=== PATIENT | female | born 1955 | race Caucasian/White ===

== ENCOUNTER 2017-02-10 14:56 | Emergency (ER) | payer OTHER ==
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
[2017-02-10 15:10] VITALS: BP 152/79; PULSE 55; TEMP 97.4; BMI 27.1
[2017-02-10] MEDS ORDERED: ACETAMINOPHEN 500 MG TABLET (FP) PO ONE (16:23)
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
[2017-02-10] MEDS ORDERED: ACETAMINOPHEN 500 MG TABLET (FP) ONE (16:42)
== END 2017-02-10 16:47 | disposition home or self-care (01) ==
LOC: JERFT 14:56
DX: S16.1XXA Strain of muscle, fascia and tendon at neck level, initial encounter (principal); V43.52XA Car driver injured in collision with other type car in traffic accident, initial encounter; Y92.412 Parkway as the place of occurrence of the external cause; Y93.89 Activity, other specified; Y99.0 Civilian activity done for income or pay; I10 Essential (primary) hypertension; F41.9 Anxiety disorder, unspecified
CPT/HCPCS: 99281-25

== ENCOUNTER → 2018-01-06 | Day surgery (SDC) | payer OTHER ==
--- NOTE | 2018-01-11 11:28 | PATH ---
Surgical Pathology Report Patient Name: SHIVAM JOHNSTON [facility]. Rec. #: [id number] /Age/Gender: 1955 (Age: 62) / F Account: [id number] Location: [facility] Taken: 01/06/2018 Received: 01/06/2018 Reported: 01/11/2018 Physicians: Lalita Noriega M.D. Specimen(s) Received A: LEFT BREAST SPECIMEN WITH CALCIFICATIONS B: LEFT BREAST SPECIMEN WITHOUT CALCIFICATIONS Clinical History Nonpalpable lesion Mammographic findings: Microcalcification, suspicious Final Diagnosis A. 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 B. BREAST, LEFT, WITHOUT CALCIFICATIONS, STEREOTACTIC BIOPSY: BENIGN BREAST TISSUE SHOWING STROMAL FIBROSIS AND FIBROADENOMATOID CHANGE. Electronically Signed Jahaira Lazaro M.D. Gross Description A. Received in formalin labeled "left breast with calcifications," 3.5 x 2.5 x 0.3 cm aggregate of multiple peña-yellow, irregular to cylindrical portions of fibroadipose tissue. The formalin is filtered and the specimen is entirely submitted in 2 cassettes. B. Received in formalin labeled "left breast without calcifications," is a 1.7 x 1.5 x 0.3 cm aggregate of multiple peña-yellow, irregular to cylindrical portions of fibroadipose tissue. The formalin is filtered and the specimen is entirely submitted in one cassette. Time to formalin fixation: 5 minutes Total formalin fixation time: Approximately 6 hours. /01/07/2018 [facility]01/07/2018
== END | disposition home or self-care (01) ==
LOC: FMAMMOTONE 09:46
PROVIDERS: ATTEND Internal Medicine
PROC: 0HBU3ZX Excision of Left Breast, Percutaneous Approach, Diagnostic (ICD-10-PCS; principal; 2018-01-06)
DX: D24.2 Benign neoplasm of left breast (principal); N60.32 Fibrosclerosis of left breast; N64.89 Other specified disorders of breast; R92.1 Mammographic calcification found on diagnostic imaging of breast
CPT/HCPCS: 19081; 87899; 88305-TC; A4648

== ENCOUNTER 2018-11-15 07:47 | Inpatient (IN) | payer OTHER ==
[2018-11-15 07:57] VITALS: BMI 31.5
[2018-11-15] MEDS ORDERED: SODIUM CHLORIDE 1,000 ML IV STA (08:36)
--- NOTE | 2018-11-15 09:06 | PDOC ---
History of Present Illness - General Chief Complaint: Syncope/Near Syncope Stated Complaint: SYNCOPE Time Seen by Provider: 11/15/18 08:07 - History of Present Illness Initial Comments: 11/15/18 09:02 63y/o F hx of HTN, HLD and Anxiety presents to the ED with lightheadedness. 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 She was brought to the ED a few minutes later. Lighheaded sensation was relieved once she was able to lie down in the stretcher. Per pt, this is her 3rd episode of lightheadedness in the last 3 months. Her last episode 2 wks ago prompted a visit to the ED where she had a CT done with no findings. She denies any headache,paresthesisas, blurry vision, weakness, fevers, chills, sick contacts, previous hx of stroke. Past History - Past Medical History Allergies/Adverse Reactions: Allergies Allergy/AdvReac Type Severity Reaction Status Date / Time No Known Allergies Allergy Verified 11/15/18 08:52 Home Medications: Ambulatory Orders Metoprolol Succinate [Toprol XL -] 100 mg PO DAILY 07/17/11 Losartan Potassium [Cozaar -] 25 mg PO DAILY 09/02/14 Escitalopram Oxalate [Lexapro -] 5 mg PO DAILY 09/23/15 Atorvastatin Calcium [Lipitor] 40 mg PO HS 11/15/18 Cholecalciferol (Vitamin D3) [Vitamin D3] 2,000 unit PO DAILY 11/15/18 Gabapentin 300 mg PO TID 11/15/18 traZODone HCL [Trazodone HCl] 100 mg PO HS 11/15/18 Aspirin Coated [Ecotrin -] 81 mg PO DAILY #30 tablet.ec 11/16/18 Anemia: No Asthma: No Cancer: No Cardiac Disorders: No CVA: No (tia 10/2018) COPD: No CHF: No Dementia: No Diabetes: No GI Disorders: No Disorders: No HTN: Yes Hypercholesterolemia: Yes Liver Disease: No Psychiatric Problems: Yes (ANXIETY.) Seizures: No Thyroid Disease: No - Surgical History Abdominal Surgery: Yes Appendectomy: No Cardiac Surgery: No Cholecystectomy: No Lung Surgery: No Neurologic Surgery: No Orthopedic Surgery: No - Suicide/Smoking/Psychosocial Hx Smoking History: Former smoker Have you smoked in the past 12 months: No Number of Cigarettes Smoked Daily: 2 Information on smoking cessation initiated: No 'Breaking Loose' booklet given: 07/17/11 Hx Alcohol Use: No Drug/Substance Use Hx: No Substance Use Type: None Hx Substance Use Treatment: No Review of Systems - Review of Systems Constitutional: No: Chills, Fever HEENTM: No: Blurred Vision Respiratory: No: Cough, Shortness of Breath Cardiac (ROS): Yes: Lightheadedness. No: Chest Pain ABD/GI: No: Abdominal Distended, Abdominal cramping : No: Burning, Dysuria, Hematuria Musculoskeletal: Yes: Back Pain Integumentary: No: Bruising, Change in Color Neurological: Yes: Symptoms reported *Physical Exam - Vital Signs Last Vital Signs Temp Pulse Resp BP Pulse Ox 97.8 F 57 L 18 124/68 96 11/15/18 07:55 11/15/18 07:55 11/15/18 07:55 11/15/18 07:55 11/15/18 07:55 - Physical Exam General Appearance: Yes: Appropriately Dressed. No: Apparent Distress, Alcohol on Breath HEENT: positive: EOMI, Normal Voice, Symmetrical Neck: positive: Supple. negative: Tender Respiratory/Chest: positive: Lungs Clear, Normal Breath Sounds. negative: Chest Tender, Respiratory Distress, Accessory Muscle Use Cardiovascular: positive: Regular Rhythm, Regular Rate, S1, S2. negative: Edema , JVD Gastrointestinal/Abdominal: positive: Normal Bowel Sounds, Soft. negative: Guarding, Tenderness Musculoskeletal: positive: Normal Inspection. negative: CVA Tenderness Extremity: positive: Normal Capillary Refill, Normal Inspection, Normal Range of Motion. negative: Tender Integumentary: positive: Normal Color, Dry, Warm Neurologic: positive: financial administrator II-XII NML intact, Fully Oriented, Alert, Normal Mood/ Affect, Normal Response, Finger to Nose, Other (wide based gait ) ED Treatment Course - LABORATORY CBC & Chemistry Diagram: 11/16/18 07:00 11/16/18 07:00 - ADDITIONAL ORDERS Additional order review: Laboratory Results 11/15/18 07:53 POC Glucometer 117 11/15/18 07:53 POC Glucometer 117 - RADIOLOGY Radiology Studies Ordered: Category Date Time Status HEAD CT WITHOUT CONTRAST [CT] Stat CT Scan 11/15/18 08:32 Ordered Medical Decision Making - Medical Decision Making 11/15/18 09:01 63y/o F hx of HTN, HLD and Anxiety presents to the ED with lightheadedness. Labs/Imaging/Meds EKG, Troponin, cbc,cmp, poc glucose, ua, ct head w/o contrast. Ekg: sinus bradycardia, otherwise normal. Head CT:Moderate volume loss and chronic microvascular ischemic changes and intracranial pathology is identified. mild focal mucosal thickening in the sphenoid sinus Pt has experienced 3 episodes of near syncope in the last 3 months. Admit for further evaluation *DC/Admit/Observation/Transfer Diagnosis at time of Disposition: Near syncope - Discharge Dispostion Condition at time of disposition: Improved - Referrals - Patient Instructions - Post Discharge Activity
[2018-11-15 09:28] LABS: BASO % 0.3 % (0-2.0); EOS % 1.6 % (0-4.5); HEMATOCRIT 37.1 % (32.4-45.2); HEMOGLOBIN 12.3 GM/dL (10.7-15.3); LYMPH % 51.7 % (8-40); MCHC 33.2 g/dl (32.0-36.0); MEAN CELL VOLUME 90.5 fl (80-96); MEAN PLT VOLUME 7.3 fl (7.5-11.1); MONO % 4.7 % (3.8-10.2); NEUT % 41.7 % (42.8-82.8); PLATELET COUNT 142 K/MM3 (134-434); RDW 14.4 % (11.6-15.6); WHITE BLOOD COUNT 12.8 K/mm3 (4.0-10.0)
--- NOTE | 2018-11-15 09:33 | PDOC ---
Attending Attestation - Resident Resident Name: Dariusz Alexander - ED Attending Attestation I have performed the following: I have examined & evaluated the patient, The case was reviewed & discussed with the resident, I agree w/resident's findings & plan, Exceptions are as noted - HPI HPI: 11/15/18 09:33 Ms. Schmidt is a 63y/o F hx of HTN, HLD and Anxiety presents to the ED with lightheadedness. While at work today, she began to feel like she was going to pass out She did not eat this morning for breakfast (but does not always) She requested that a rapid response be called and was brought to the ED for assessment Lightheaded sensation was relieved once she was able to lie down in the ER Pt apparently has had 2 prior episodes like this Her last episode 2 weeks ago resulting in an admission to an OSH (reportedly had an extensive stroke work up) Pt also had something similar 3 months ago currently, she states that she feels better She denies any headache,paresthesisas, blurry vision, weakness, fevers, chills, sick contacts, previous hx of stroke. - Physicial Exam PE: 11/15/18 09:14 GENERAL: The patient is in no acute distress. ENT: Ears normal, nares patent, oropharynx clear without exudates. Moist mucous membranes. NECK: Normal range of motion, supple LUNGS: Breath sounds equal, clear to auscultation bilaterally. No wheezes, and no crackles. HEART:Regular rate and rhythm, normal S1 and S2 without murmur, rub or gallop. ABDOMEN: Soft, nontender, normoactive bowel sounds. EXTREMITIES: Normal range of motion, no edema. NEUROLOGICAL: Cranial nerves II through XII grossly intact. Normal speech. No focal neurological deficits. see NIHSS SKIN: Warm, Dry, normal turgor, no rashes or lesions noted. - Medical Decision Making 11/15/18 09:52 63 yo F presenting with a complaint of lightheadedness in the setting of 2 prior episodes of lightheadedness this is concerning as pt may be having TIAs Will do Labs EKG EKG - Twelve-lead EKG was performed and reviewed by me. There is a slightly bradycardiac rate of 57 bpm. The axis is normal. The intervals are normal. There are no ST or T wave abnormalities. Impression: Normal twelve-lead EKG 11/15/18 11:13 Laboratory Tests 11/15/18 11/15/18 11/15/18 07:53 08:53 09:00 WBC 12.8 H Hgb 12.3 Hct 37.1 Plt Count 142 BUN 15.3 Creatinine 0.8 POC Glucometer 117 Troponin I < 0.02 Urine Nitrite Ur Leukocyte Esterase Urine WBC (Auto) Urine RBC (Auto) 11/15/18 09:30 WBC Hgb Hct Plt Count BUN Creatinine POC Glucometer Troponin I Urine Nitrite Negative Ur Leukocyte Esterase 2+ H Urine WBC (Auto) 65 Urine RBC (Auto) 2 Will admit clinical impression: TIA vs. syncope, initial presentation NIH Stroke Scale - Last Known Well Date/Time & Onset Date Last Known Well: 11/15/18 Time Last Known Well: 09:45 - Initial Evaluation Level of consciousness: Alert Ask patient the month and their age: Answers both correctly Ask patient to open & close eyes; make fist and let go: Obeys both correctly Best gaze (horizontal eye movement): Normal Visual field testing: No visual field loss Facial paresis (Show teeth/raise eyebrows/close eyes tight): Normal symmetrical movement Motor Function: Left Arm: Normal Motor Function: Right Arm: Normal (extends arm 90 (or 45) degrees for 10 seconds without drift Motor Function: Left Leg: Normal (extends leg 30 degrees for 5 seconds without drift) Motor Function: Right Leg: Normal (extends leg 30 degrees for 5 seconds without drift) Limb Ataxia: No ataxia Sensory(Use pinprick test arms,legs,trunk,face/side to side): Normal Best language (Describe picture, name items, read sentences): No Aphasia Dysarthria (read several words): Normal articulation Extinction and Inattention: No abnormality - Total Score NIH Stroke Scale Score: 0
[2018-11-15 10:16] LABS: ALBUMIN 3.8 g/dl (3.4-5.0); ALK PHOS 113 U/L (45-117); ANION GAP 7 MMOL/L (8-16); BILIRUBIN,TOTAL 0.4 mg/dL (0.2-1); BLOOD UREA NITROGEN 15.3 mg/dL (7-18); CALCIUM 8.9 mg/dL (8.5-10.1); CHLORIDE 106 mmol/L (98-107); CO2 25 mmol/L (21-32); CREATININE 0.8 mg/dL (0.55-1.3); GLUCOSE,RANDOM 97 mg/dL (74-106); POTASSIUM 3.9 mmol/L (3.5-5.1); SGOT/AST 17 U/L (15-37); SGPT/ALT 20 U/L (13-61); SODIUM 139 mmol/L (136-145); TOT PROT 6.8 g/dl (6.4-8.2)
[2018-11-15 10:19] LABS: EPI CELLS 20.2 /HPF (0-5/HPF); HYALINE CASTS 285 /lpf (0-8); URINE APPEARANCE TURBID; URINE BACTERIA 34.4 /hpf (NEGATIVE); URINE BILIRUBIN 1+ (NEGATIVE); URINE COLOR DK YELLOW; URINE GLUCOSE (UA) NEGATIVE (NEGATIVE); URINE KETONE TRACE (NEGATIVE); URINE LEUK ESTERASE 2+ (NEGATIVE); URINE NITRITE NEGATIVE (NEGATIVE); URINE PROTEIN TRACE (NEGATIVE); URINE RBC 2 /hpf (0-4); URINE WBC 65 /hpf (0-5)
[2018-11-15] MEDS ORDERED: CEFTRIAXONE 1 GM in DEXTROSE 5%-WATER - 100 ML IVPB ONE (10:56)
[2018-11-15] MEDS ORDERED: CEFTRIAXONE 1 GM/50 ML BAG ONE (11:38)
[2018-11-15] MEDS ORDERED: ACETAMINOPHEN 325 MG TABLET (FP) PO PRN (11:45)
[2018-11-15 12:00] LABS: ANISOCYTOSIS 0; HELMET CELLS 0; HOWELL-JOLLY BODIES 0; MACROCYTOSIS 0; OVALOCYTE 0; PLATELET ESTIMATE DECREASED; ROULEAU 0; SICKELED CELLS 0; TARGET CELLS 0; TEAR DROP CELLS 0; TOXIC GRANULATION 0
[2018-11-15] MEDS ORDERED: CLOPIDOGREL BISULFATE 75 MG TABLET (FP) PO SCH (12:00)
--- NOTE | 2018-11-15 12:19 | CONSULT ---
Admitting History and Physical - Primary Care Physician PCP: Gerardo Martinez - Admission History of Present Illness: Per EMR- 63y/o F hx of HTN, HLD and Anxiety presents to the ED with lightheadedness. 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 She was brought to the ED a few minutes later. Lighheaded sensation was relieved once she was able to lie down in the stretcher. Per pt, this is her 3rd episode of lightheadedness in the last 3 months. Her last episode 2 wks ago prompted a visit to the ED where she had a CT done with no findings. Pt reported that she had impaired ambulation when it occurred, as if her equilibrium was off. She couldnt walk. She denied asymmetry, speech/swallow deficits,and visual deficits. History Source: Patient Limitations to Obtaining History: No Limitations - Smoking History Smoking history: Former smoker Have you smoked in the past 12 months: No Aproximately how many cigarettes per day: 2 - Alcohol/Substance Use Hx Alcohol Use: No History - Admission Reason For Visit: SYNCOPE - Diagnostics X-ray: Report Reviewed CT Scan: Report Reviewed MRI: Pending - General Mental Status: Alert and Oriented, Awake and Alert, Able to Follow Commands Attention: Intact Ability to Follow Directions: Excellent Head/Neck Control: WFL - Hearing Hearing: Functional Speech Evaluation - Communication Primary Language: [place] Communication: Yes: Within Normal Limits Oral Expression Ability: Yes: No Impairment - Speech Production Able to Make Needs Known: Yes: WNL Intelligibility: Yes: WNL - Speech Characteristics Voice Loudness: Normal Voice Pitch: Yes: Normal Voice Phonatory-based Quality: Yes: Normal Speech Pattern: Normal Nasal Resonance: Normal Articulation: Yes: Precise Rate of Speech: Intact - Language/Auditory Comprehension Follows: Yes: Complex Commands Observation: Able to respond to yes/no queries: Yes, Yes/No Confusion: No, Comprehends Conversational Speech: Yes - Language/Verbal Expression Able to Respond to Simple Queries: Yes: WNL Able to Communicate Wants and Needs: Yes: WNL Functional Communication Status: Yes: WNL Attention: Yes: Intact - Memory/Perception prison Memory: Yes: WNL Short Term Memory: Yes: WNL - Swallow Evaluation/Bedside Assessment Current Nutritional Intake: NPO Oral Secretions: Yes: WFL Dentition: Yes: Adequate Facial Symmetry at Rest: Symmetrical Facial Symmetry on Retraction: Symmetrical Facial Movement: Controlled Sensation: Normal Against Resistance Opening: Normal Against Resistance Closing: Normal Pucker Lips: Normal Smile: Normal Lingual Movement: Normal, Symmetric Lingual Speed of Movement: Normal Lingual Movement Strgth Against Opposition: Normal Lingual Movement Characteristics: Normal Velopharyngeal Movement: Normal Laryngeal Elevation: WFL Laryngeal Movement: Able to Palpate Rate of Intake: WFL Bolus Size: WFL Labial Seal: WFL Chewing: WFL Oral Prep Time: WFL A-P Transit: WFL Pocketing: None Odynophagia: Oral Coughing/Throat Clear: No Change in Voice: No Recommendations - Speech Evaluation, Impression/Plan Impression: Speech, language, cognition, swallowing intact. - Dysphagia Impressions/Plan Swallowing Skills: [facility] Dysphagia Impressions: No Impairment *Silent aspiration: cannot be R/O at bedside - Recommendations Diet Consistency: Regular Medication Administration: Whole with water Liquids: Thin Liquids
--- NOTE | 2018-11-15 12:29 | PN ---
Progress Note (short form) - Note Progress Note: Hospitalist to document today. On the suggestion of Dr. Narendra Staples resident, I asked ER nurse to have orthostatic BP done. Result 138/62 in bed; 100/61 standing and patient was shaking.
--- NOTE | 2018-11-15 12:36 | HP ---
CHIEF COMPLAINT: Lightheadedness PCP: Dr. Ron HISTORY OF PRESENT ILLNESS: 63 y/o F with PMHx of HTN, HLD, Anxiety, ?TIA (10/2018) presents for with lightheadedness. Patient was in her usual state of health yesterday. She did not eat dinner last evening nor breakfast this morning. Suddenly while sitting at her desk, she became lightheaded and told her coworker to initiate a rapid response. She is unsure if she lost conciousness. She denies any associated convulsions, blurry vision, loss of bowel/bladder control, or tongue biting. She is unable to identify a triggering event. 3 months ago, while sitting in her car conversing with a coworker, patient had an episode of aphasia; She was later told by her coworker that her speech was incoherent. This episode self-resolved and patient did not seek intervention. 2 weeks ago, while on vacation in [place], patient had an episode of Amnesia, Aphasia and incoherent speech. She was escorted by her family to [facility] ([facility]) where a TIA workup was negative (as per patient). Patient was discharged on ASA and Statin and has been symptom free until this morning. She recently visited her PCP and was scheduled to visit Neurology (Dr. Lerma) on 11/28. Denies any associated pain, numbness tingling, weakness, fever, chills, chest pain, SOB, nausea, vomiting, diarrhea, constipation. 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 Family History: Mother: Heart disease Father: HLD Allergies No Known Allergies Allergy (Verified 11/15/18 08:52) HOME MEDICATIONS: Home Medications Medication Instructions Recorded Metoprolol Succinate [Toprol XL -] 25 mg PO DAILY 07/17/11 Losartan Potassium [Cozaar -] 25 mg PO DAILY 09/02/14 Escitalopram Oxalate [Lexapro -] 10 mg PO DAILY 09/23/15 Amlodipine Besylate [Norvasc -] 10 mg PO DAILY 11/15/18 Aspirin 81 mg PO DAILY 11/15/18 Atorvastatin Calcium [Lipitor] 20 mg PO HS 11/15/18 REVIEW OF SYSTEMS As per [facility] PHYSICAL EXAMINATION Vital Signs - 24 hr 11/15/18 11/15/18 11/15/18 07:55 10:33 11:58 Temperature 97.8 F Pulse Rate 57 L Pulse Rate [ 65 Right Brachial] Pulse Rate [ 64 Sitting] Pulse Rate [ 69 Standing] Respiratory 18 16 Rate Blood Pressure 124/68 Blood Pressure 119/63 [Right Arm] Blood Pressure 138/61 [Sitting] Blood Pressure 100/62 [Standing] O2 Sat by Pulse 96 Oximetry (%) GENERAL: A&Ox3, NAD HEAD: NCAT EYES: PERRL, EOMI, No lid lag. EARS, NOSE, THROAT: Oropharynx clear without exudates. Moist mucous membranes. NECK: Supple, No JVD LUNGS: CTAB, No wheezes, no crackles HEART: Regular rate and rhythm, normal S1 and S2 without murmur ABDOMEN: Soft, nontender, not distended, + bowel sounds, no guarding, no rebound MUSCULOSKELETAL: No CVA tenderness EXTREMITIES: No peripheral edema. NEUROLOGICAL: Cranial nerves II-XII intact. Normal speech. Gross sensation intact throughout. 5/5 muscle strengthout. Abnormal gait, slow and ?Shuffling. NIHSS 0 SKIN: Warm, dry Laboratory Last Values WBC 12.8 K/mm3 (4.0-10.0) H 11/15/18 09:00 RBC 4.10 M/mm3 (3.60-5.2) 11/15/18 09:00 Hgb 12.3 GM/dL (10.7-15.3) 11/15/18 09:00 Hct 37.1 % (32.4-45.2) 11/15/18 09:00 MCV 90.5 fl (80-96) 11/15/18 09:00 MCH 30.0 pg (25.7-33.7) 11/15/18 09:00 MCHC 33.2 g/dl (32.0-36.0) 11/15/18 09:00 RDW 14.4 % (11.6-15.6) 11/15/18 09:00 Plt Count 142 K/MM3 (134-434) 11/15/18 09:00 MPV 7.3 fl (7.5-11.1) L 11/15/18 09:00 Absolute Neuts (auto) 5.3 K/mm3 (1.5-8.0) 11/15/18 09:00 Neutrophils % 41.7 % (42.8-82.8) L D 11/15/18 09:00 Lymphocytes % 51.7 % (8-40) H 11/15/18 09:00 Monocytes % 4.7 % (3.8-10.2) 11/15/18 09:00 Eosinophils % 1.6 % (0-4.5) 11/15/18 09:00 Basophils % 0.3 % (0-2.0) 11/15/18 09:00 Nucleated RBC % 0 % (0-0) 11/15/18 09:00 Sodium 139 mmol/L (136-145) 11/15/18 08:53 Potassium 3.9 mmol/L (3.5-5.1) 11/15/18 08:53 Chloride 106 mmol/L (98-107) 11/15/18 08:53 Carbon Dioxide 25 mmol/L (21-32) 11/15/18 08:53 Anion Gap 7 MMOL/L (8-16) L 11/15/18 08:53 BUN 15.3 mg/dL (7-18) 11/15/18 08:53 Creatinine 0.8 mg/dL (0.55-1.3) 11/15/18 08:53 Est GFR (CKD-EPI)AfAm 90.30 11/15/18 08:53 Est GFR (CKD-EPI)NonAf 77.91 11/15/18 08:53 POC Glucometer 117 UNITS (80-120) 11/15/18 07:53 Random Glucose 97 mg/dL (74-106) 11/15/18 08:53 Calcium 8.9 mg/dL (8.5-10.1) 11/15/18 08:53 Total Bilirubin 0.4 mg/dL (0.2-1) 11/15/18 08:53 AST 17 U/L (15-37) 11/15/18 08:53 ALT 20 U/L (13-61) 11/15/18 08:53 Alkaline Phosphatase 113 U/L (45-117) 11/15/18 08:53 Troponin I < 0.02 ng/ml (0.00-0.05) 11/15/18 08:53 Total Protein 6.8 g/dl (6.4-8.2) 11/15/18 08:53 Albumin 3.8 g/dl (3.4-5.0) 11/15/18 08:53 Urine Color Dk yellow 11/15/18 09:30 Urine Appearance Turbid 11/15/18 09:30 Urine pH 5.0 (5.0-8.0) 11/15/18 09:30 Ur Specific [place] 1.027 (1.010-1.035) 11/15/18 09:30 Urine Protein Trace (NEGATIVE) 11/15/18 09:30 Urine Glucose (UA) Negative (NEGATIVE) 11/15/18 09:30 Urine Ketones Trace (NEGATIVE) H 11/15/18 09:30 Urine Blood Negative (NEGATIVE) 11/15/18 09:30 Urine Nitrite Negative (NEGATIVE) 11/15/18 09:30 Urine Bilirubin 1+ (NEGATIVE) H 11/15/18 09:30 Urine Urobilinogen 1.0 mg/dL (0.2-1.0) 11/15/18 09:30 Ur Leukocyte Esterase 2+ (NEGATIVE) H 11/15/18 09:30 Urine WBC (Auto) 65 /hpf (0-5) 11/15/18 09:30 Urine RBC (Auto) 2 /hpf (0-4) 11/15/18 09:30 Urine Casts (Auto) 285 /lpf (0-8) 11/15/18 09:30 U Pathogenic Cast Auto None seen /lpf (NEGATIVE) 11/15/18 09:30 U Epithel Cells (Auto) 20.2 /HPF (0-5/HPF) 11/15/18 09:30 Urine Bacteria (Auto) 34.4 /hpf (NEGATIVE) 11/15/18 09:30 IMAGING: -CT head without contrast: Moderate volume loss and mild periventricular chronic microvascular ischemic changes. No acute intracranial pathology is identified. Mild focal mucosal thickening in the sphenoid sinus, posteriorly. ASSESSMENT/PLAN: 63 y/o F with PMHx of HTN, HLD, Anxiety, recent TIA workup (10/2018) presents with lightheadedness and new onset abnormal gait. #Lightheadness -Concerning for Near-syncopal episode due to dehydration vs UTI; Must r/o TIA in the setting of newonset abnormal Gait -CT Head noted above, Trop Negative, EKG Reveals Sinus bradycardia VR 57 QTc 414 -Check Orthostatic VS, Echo, Carotid dopplers -Continue IV hydration -Cardio (Dr. Richardson) consulted -Tele -Will attempt to obtain records from recent hospitalization at [facility] #Abnormal Gait -New onset concerning for acute neurological event -Physical therapy -Speech and swallow consult -Neurochecks Q2H -Fall/Dysphagia/Seizure precautions -Keep HOB elevated ay 30 degrees -Neuro (Dr. Lerma) consulted; Case discussed and will hold further plavix dosing as per rec's -NPO -Check Lipid panel, A1c, TSH, Brain MRI w/o contrast -Continue ASA 81mg daily, Atorvastatin 40mg HS #UTI -UA reveals 2+ LE, 65 WBC, 34 bacteria; Mild Leukocytosis 12.8 -Ceftriaxone 1gm daily (ABx course started on 11/15) -Urine Cx pending #HTN -Normotensive on admission -Will hold antihypertensive's in the setting of syncope, will restart once meds reconciled and clinically appropriate #FEN -IV NS @ 75 mls/hr -Lytes WNL, Replete PRN -NPO pending S&S eval #PPx -DVT: Heparin SQ TID Dispo: Admit to Tele Visit type - Emergency Visit Emergency Visit: Yes ED Registration Date: 11/15/18 Care time: The patient presented to the Emergency Department on the above date and was hospitalized for further evaluation of their emergent condition. - New Patient This patient is new to me today: Yes Date on this admission: 11/15/18 - Critical Care Critical Care patient: No ATTENDING PHYSICIAN STATEMENT I saw and evaluated the patient. I reviewed the resident's note and discussed the case with the resident. I agree with the resident's findings and plan as documented. SUBJECTIVE: OBJECTIVE: ASSESSMENT AND PLAN:
--- NOTE | 2018-11-15 12:41 | EKG ---
Test Reason : Blood Pressure : / mmHG Vent. Rate : 057 BPM Atrial Rate : 057 BPM P-R Int : 178 ms QRS Dur : 082 ms QT Int : 426 ms P-R-T Axes : 035 013 032 degrees QTc Int : 414 ms SINUS BRADYCARDIA OTHERWISE NORMAL ECG WHEN COMPARED WITH ECG OF 23-SEP-2015 09:45, NO SIGNIFICANT CHANGE WAS FOUND Confirmed by Byron Cain MD ([id number]) on 11/15/2018 12:41:16 PM Referred By: Confirmed By:Byron Cain MD
[2018-11-15] MEDS: SODIUM CHLORIDE 1,000 ML IV SCH (12:55)
--- NOTE | 2018-11-15 13:25 | PN ---
Teaching Attending Note Name of Resident: Cari Staples ATTENDING PHYSICIAN STATEMENT I saw and evaluated the patient. I reviewed the resident's note and discussed the case with the resident. I agree with the resident's findings and plan as documented. 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 and is admitted for presyncope. patient had a simalar event last week where she was hospitalized in [facility] where she was admitted for one day. As per patient , she felt very dizzy upon standing up and was going to collapse on the floor , sat on the chair feeling very dizzy, hx of smoking quit 3 days ago. OBJECTIVE: Vital Signs Temperature 97.8 F 11/15/18 07:55 Pulse Rate 64 11/15/18 11:58 Respiratory Rate 16 11/15/18 10:33 Blood Pressure 138/61 11/15/18 11:58 O2 Sat by Pulse Oximetry (%) 96 11/15/18 07:55 GENERAL: The patient is awake, alert, and fully oriented, in no acute distress. HEAD: Normal with no signs of trauma. EYES: PERRL, extraocular movements intact, sclera anicteric, conjunctiva clear. No ptosis. ENT: Ears normal, nares patent, oropharynx clear without exudates, moist mucous membranes. NECK: Trachea midline, full range of motion, supple. LUNGS: Breath sounds equal, clear to auscultation bilaterally, no wheezes, no crackles, no accessory muscle use. HEART: Regular rate and rhythm, S1, S2 without murmur, rub or gallop. ABDOMEN: Soft, nontender, nondistended, normoactive bowel sounds, no guarding, no rebound, no hepatosplenomegaly, no masses. EXTREMITIES: 2+ pulses, warm, well-perfused, no edema. NEUROLOGICAL: Cranial nerves II through XII grossly intact. Normal speech, gait not observed. PSYCH: Normal mood, normal affect. SKIN: Warm, dry, normal turgor, no rashes or lesions noted CBCD WBC 12.8 K/mm3 (4.0-10.0) H 11/15/18 09:00 RBC 4.10 M/mm3 (3.60-5.2) 11/15/18 09:00 Hgb 12.3 GM/dL (10.7-15.3) 11/15/18 09:00 Hct 37.1 % (32.4-45.2) 11/15/18 09:00 MCV 90.5 fl (80-96) 11/15/18 09:00 MCHC 33.2 g/dl (32.0-36.0) 11/15/18 09:00 RDW 14.4 % (11.6-15.6) 11/15/18 09:00 Plt Count 142 K/MM3 (134-434) 11/15/18 09:00 MPV 7.3 fl (7.5-11.1) L 11/15/18 09:00 CMP Sodium 139 mmol/L (136-145) 11/15/18 08:53 Potassium 3.9 mmol/L (3.5-5.1) 11/15/18 08:53 Chloride 106 mmol/L (98-107) 11/15/18 08:53 Carbon Dioxide 25 mmol/L (21-32) 11/15/18 08:53 Anion Gap 7 MMOL/L (8-16) L 11/15/18 08:53 BUN 15.3 mg/dL (7-18) 11/15/18 08:53 Creatinine 0.8 mg/dL (0.55-1.3) 11/15/18 08:53 Random Glucose 97 mg/dL (74-106) 11/15/18 08:53 Calcium 8.9 mg/dL (8.5-10.1) 11/15/18 08:53 Total Bilirubin 0.4 mg/dL (0.2-1) 11/15/18 08:53 AST 17 U/L (15-37) 11/15/18 08:53 ALT 20 U/L (13-61) 11/15/18 08:53 Alkaline Phosphatase 113 U/L (45-117) 11/15/18 08:53 Total Protein 6.8 g/dl (6.4-8.2) 11/15/18 08:53 Albumin 3.8 g/dl (3.4-5.0) 11/15/18 08:53 CARDIAC ENZYMES Troponin I < 0.02 ng/ml (0.00-0.05) 11/15/18 08:53 Current Medications Generic Name Dose Route Start Last Admin Trade Name Freq PRN Reason Stop Dose Admin Acetaminophen 650 mg 11/15/18 11:45 Tylenol - PO Q4H PRN PAIN Aspirin 81 mg 11/16/18 10:00 Ecotrin - PO DAILY JOSEPH Atorvastatin Calcium 40 mg 11/15/18 22:00 Lipitor - PO HS [facility] Heparin Sodium (Porcine) 5,000 unit 11/15/18 14:00 Heparin - SQ TID JOSEPH Sodium Chloride 1,000 mls @ 75 mls/hr 11/15/18 11:45 Normal Saline - IV ASDIR JOSEPH Ceftriaxone Sodium 1 gm/ 50 mls @ 100 mls/hr 11/16/18 10:00 Dextrose IVPB DAILY [facility] Protocol Home Medications Medication Instructions Recorded Metoprolol Succinate [Toprol XL -] 25 mg PO DAILY 07/17/11 Losartan Potassium [Cozaar -] 25 mg PO DAILY 09/02/14 Escitalopram Oxalate [Lexapro -] 10 mg PO DAILY 09/23/15 Amlodipine Besylate [Norvasc -] 10 mg PO DAILY 11/15/18 Aspirin 81 mg PO DAILY 11/15/18 Atorvastatin Calcium [Lipitor] 20 mg PO HS 11/15/18 MRI: no acute infarct CT head without contrast: Moderate volume loss and mild periventricular chronic microvascular ischemic changes. No acute intracranial pathology is identified. Mild focal mucosal thickening in the sphenoid sinus, posteriorly. ASSESSMENT AND PLAN: 63 y/o F with PMHx of HTN, HLD, Anxiety, recent TIA workup (10/2018) presents with lightheadedness and new onset abnormal gait. # Near-syncopal episode. monitor , orthostatic hypotention, ivf continue #Acute dehydration : ON IVF #Abnormal Gait: mri negative, possible due to feeling lethargic monitor, and could be due to UTI , follow cx #UTI: Ceftriaxone 1gm daily IV, Urine Cx pending #HTN: Will hold antihypertensive's in the setting of syncope, will restart once meds reconciled and clinically appropriate DVT hx: Heparin SQ TID am cortisol is pending.
--- NOTE | 2018-11-15 15:16 | CON.CARD ---
Consult Consult Specialty:: Cardiology Referred by:: Dr. Parker Reason for Consultation:: Presyncope - History of Present Illness Chief Complaint: "Almost passed out" History of Present Illness: 63F HTN, HLD and recent dx "TIA" at an outside ER when she presented with generalized weakness and memory issues. Work up then including reported MR, echo, tele all WNL. Today sent to ER from work after episode of altered consciousness, light headedness, near syncope and confusion. Head CT here with volume loss, but no acute changes. Of note, significant drop in BP standing: almost 40mmHg orthostatic drop was noted. She denies CP, SOB, palps, edema, PND or orthopnea. Prelim carotid US showed mild plaque without stenosis. She has had memory difficulty for several weeks. Urine was cultured and she was started on Ceftriaxone by hospitalist team for possible UTI as UA showed + LE - History Source History Provided By: Patient, Medical Record Limitations to Obtaining History: Clinical Condition - Past Medical History Cardio/Vascular: Yes: HTN, Hyperlipdemia Gastrointestinal: No: Ascites, Cancer, Constipation, Crohn's Disease, Diverticulitis, Diverticulosis, Esophageal Varices, Gastritis, GERD, GI Bleed, Hemorrhoids, Hiatal Hernia, Inflamatory Bowel Disease, Irritable Bowel Disease, Pancreatitis, Peptic Ulcer Disease, Ulcerative Colitis, Other Hepatobiliary: No: Cirrhosis, Cholelithiasis, Cholecystitis, Choledocholithiasis , Hepatitis A, Hepatitis B, Hepatitis C, Other Renal/: No: Renal Failure, Renal Inusuff, BPH, Cancer, Hematuria, Hemodialysis , Neurogenic Bladder, Renal Calculi, UTI, Other Heme/Onc: No: Anemia, B12 Deficiency, Bleeding Disorder, Cancer, Current Chemotherapy, Current Radiation Therapy, Hemochromatosis, Hypercoaguable State, Myeloproliferative Synd, Sickle Cell Disease, Sickle Cell Trait, Thrombocytopenia, Other Infectious Disease: No: AIDS, C-Diff, Herpes Zoster, HIV, MRSA, STD's, Tuberculosis, VREF, Other Psych: No: Addictions, Anxiety, Bipolar, Depression, Panic, Psychosis, Schizophrenia, Other Musculoskeletal: No: Bursitis, Chronic low back pain, Hemiparesis, Hemiplegia, Osteoarthritis, Paraplegia, Other Rheumatology: No: Fibromyalgia, Gout, Lupus, Rheumatoid Arthritis, Sarcoidosis, Vasculitis, Other ENT: No: Allergic Rhinitis, Sinusitis, Other Endocrine: No: Rincon's Disease, Brandt's Disease, Diabetes Insipidus, Diabetes Mellitus, Hyperparathyroidism, Hyperthyroidism, Hypothyroidism, Osteopenia, SIADH, Other Dermatology: No: Basal Cell, Cellulitis, Eczema, Melanoma, Psoriasis, Squamous Cell, Other - Past Surgical History Past Surgical History: No: None, AAA Repair, AICD, Amputation, Appendectomy, Arthrosocopy, AV Fistula/Graft, Bariatric Surgery, Breast Biopsy, Bypass, CABG, Carotid Endarterectomy, Cataract Removal, Cholecystectomy, Colectomy, Colonoscopy, Colostomy, Craniotomy, , Cystectomy, Hernia Repair, Hysterectomy, Ileal Conduit, Ileosotomy, Joint Replacement, Kidney Transplant, Laminectomy, Liver Transplant, Mastectomy, Nephrectomy, Oopherectomy, Orchiectomy, Permanent Pacemaker, Prostatectomy, Splenectomy, Stent, Thoracotomy , TURP, Tonsillectomy, Tubal Ligation, Upper Endoscopy, Valve Replacement, Vasectomy, Vein Stripping/Ligation - Alcohol/Substance Use Hx Alcohol Use: No - Smoking History Smoking history: Former smoker Have you smoked in the past 12 months: No Aproximately how many cigarettes per day: 2 - Social History History of Recent Travel: No Home Medications - Allergies Allergies/Adverse Reactions: Allergies Allergy/AdvReac Type Severity Reaction Status Date / Time No Known Allergies Allergy Verified 11/15/18 08:52 - Home Medications Home Medications: Ambulatory Orders Metoprolol Succinate [Toprol XL -] 100 mg PO DAILY 07/17/11 Losartan Potassium [Cozaar -] 25 mg PO DAILY 09/02/14 Escitalopram Oxalate [Lexapro -] 5 mg PO DAILY 09/23/15 Amlodipine Besylate 5 mg PO DAILY 11/15/18 Amlodipine Besylate [Norvasc -] 10 mg PO DAILY 11/15/18 Aspirin 81 mg PO DAILY 11/15/18 Aspirin [ASA -] 325 mg PO DAILY 11/15/18 Atorvastatin Calcium [Lipitor] 40 mg PO HS 11/15/18 Cholecalciferol (Vitamin D3) [Vitamin D3] 2,000 unit PO DAILY 11/15/18 Gabapentin 300 mg PO TID 11/15/18 traZODone HCL [Trazodone HCl] 100 mg PO HS 11/15/18 Family Disease History - Family Disease History Family History: Unremarkable (not pertinent to this presentation) Review of Systems - Review of Systems Constitutional: reports: Other (confusion) Eyes: reports: No Symptoms HENT: reports: No Symptoms Neck: reports: No Symptoms Cardiovascular: reports: No Symptoms Respiratory: reports: No Symptoms Gastrointestinal: reports: No Symptoms Genitourinary: reports: No Symptoms Breasts: reports: No Symptoms Reported Musculoskeletal: reports: No Symptoms Integumentary: reports: No Symptoms Neurological: reports: Change in LOC, Change in Speech, Confusion Endocrine: reports: No Symptoms Hematology/Lymphatic: reports: No Symptoms Psychiatric: reports: No Symptoms - Risk Factors Known Risk Factors: Yes: Hypercholesterolemia, Hypertension Vital Signs: Vital Signs Temperature 97.8 F 11/15/18 07:55 Pulse Rate 64 11/15/18 11:58 Respiratory Rate 16 11/15/18 10:33 Blood Pressure 138/61 11/15/18 11:58 O2 Sat by Pulse Oximetry (%) 96 11/15/18 07:55 Constitutional: Yes: Well Nourished, No Distress, Calm Eyes: Yes: Conjunctiva Clear Respiratory: Yes: CTA Bilaterally Gastrointestinal: Yes: Soft Cardiovascular: Yes: Regular Rate and Rhythm JVD: No Carotid Bruit: No PMI: Non-Displaced Heart Sounds: Yes: S1, S2 (rrr, no m/r/g) Edema: No Peripheral Pulses WNL: Yes Neurological: Yes: Confusion ...Motor Strength: WNL - Other Data Labs, Other Data: CBC, BMP 11/15/18 09:00 11/15/18 08:53 Troponin, BNP 11/15/18 08:53 Troponin I < 0.02 Troponin, BNP 11/15/18 08:53 Troponin I < 0.02 Sinus alex 57 o/w unremarkable Echo: Pending Imaging - Results Cat Scan: Report Reviewed EKG: Image Reviewed Assessment/Plan IMP: 1.Presyncope in setting of marked orthostatic hypotension 2. Recent TIA (outside hospital) 3. Cognitive changes and memory impairment, subacute to chronic REC: 1. Agree to hold BP meds for now and hydrate. Check orthostatics q shift. 2. Echo for EF assessment 3. Tele x 24 hours to r/o arrhythmia: initial mild sinus alex noted on ECG would not cause her presenting sx. 4. Neuro evaluation pending. May need to repeat MRI, will defer to Neuro 5. Continue ASA and statin for mild carotid plaque and recent TIA dx. 6. F/u urine cx and cont abx as per primary team until final Ucx available. Thank you, will follow.
--- NOTE | 2018-11-15 15:49 | ECHO ---
Name: SHIVAM JOHNSTON Exam:Adult Echocardiogram Study Date: 11/15/2018 12:20 PM Age: 63 yrs Reason For Study: EVALUATE LVF Height: 63 in Weight: 178 lb BSA: 1.8 m2 MMode/2D Measurements & Calculations IVSd: 0.91 cm Ao root diam: 2.3 cm LVIDd: 4.6 cm LA dimension: 4.1 cm LVIDs: 2.9 cm LVPWd: 0.73 cm EDV(Teich): 97.3 ml LVOT diam: 2.0 cm ESV(Teich): 31.0 ml Doppler Measurements & Calculations MV E max des: 77.5 cm/sec Ao V2 max: 182.2 cm/sec MV A max des: 101.7 cm/sec Ao max P.3 mmHg MV E/A: 0.76 Ao V2 mean: 126.3 cm/sec MV dec time: 0.23 sec Ao mean P.3 mmHg Ao V2 VTI: 44.0 cm DENNY(I,D): 1.6 cm2 AI P1/2t: 573.5 msec DENNY(V,D): 1.8 cm2 AI max des: 435.6 cm/sec LV V1 max P.8 mmHg AI max P.9 mmHg LV V1 mean P.5 mmHg AI dec slope: 222.5 cm/sec2 LV V1 max: 110.1 cm/sec LV V1 mean: 75.1 cm/sec LV V1 VTI: 22.7 cm MR max des: 530.6 cm/sec SV(LVOT): 68.8 ml MR max P.6 mmHg TR max des: 190.6 cm/sec Med Peak E' Des: 9.1 cm/sec TR max P.5 mmHg Med E/e': 8.5 Lat Peak E' Des: 12.1 cm/sec Lat E/e': 6.4 Procedure A two-dimensional transthoracic echocardiogram with color flow and Doppler was performed. The patient was in normal sinus rhythm during the exam. Left Ventricle The left ventricular size, thickness and function are normal. Ejection Fraction = 65%. Grade I diasto lic dysfunction, (abnormal relaxation pattern). Right Ventricle The right ventricle is normal in size and function. Atria The left atrium is mildly dilated. Mitral Valve The mitral valve is grossly normal. There is mild mitral regurgitation. Tricuspid Valve There is trace tricuspid regurgitation. There was insufficient TR detected to calculate RV systolic p ressure. Aortic Valve The aortic valve is trileaflet. No hemodynamically significant valvular aortic stenosis. Mild aortic regurgitation. Pulmonic Valve The pulmonic valve is not well visualized. Great Vessels The aortic root is normal size. Pericardium/Pleura There is no pericardial effusion. Interpretation Summary The left ventricular size, thickness and function are normal The left atrium is mildly dilated. There is mild mitral regurgitation. There is trace tricuspid regurgitation. No hemodynamically significant valvular aortic stenosis. Mild aortic regurgitation. There was insufficient TR detected to calculate RV systolic pressure. MD Ciro Alonso 11/15/2018 03:49 PM
[2018-11-15] MEDS: HEPARIN NA (PORCINE) 5,000 UNITS/ML 1ML VIAL SQ SCH ×2 (18:25→21:00)
[2018-11-15] MEDS ORDERED: ATORVASTATIN CA 40 MG TABLET (FP) PO SCH (22:00)
[2018-11-16] MEDS: HEPARIN NA (PORCINE) 5,000 UNITS/ML 1ML VIAL SQ SCH ×2 (06:29→14:06)
[2018-11-16 07:57] LABS: BASO % 0.4 % (0-2.0); EOS % 0.6 % (0-4.5); HEMATOCRIT 38.2 % (32.4-45.2); HEMOGLOBIN 12.9 GM/dL (10.7-15.3); LYMPH % 61.2 % (8-40); MCH 30.1 pg (25.7-33.7); MCHC 33.9 g/dl (32.0-36.0); MEAN PLT VOLUME 7.5 fl (7.5-11.1); MONO % 5.5 % (3.8-10.2); NEUT % 32.3 % (42.8-82.8); PLATELET COUNT 132 K/MM3 (134-434); RDW 14.3 % (11.6-15.6)
[2018-11-16 07:59] LABS: BILIRUBIN,TOTAL 0.8 mg/dL (0.2-1); BLOOD UREA NITROGEN 8.7 mg/dL (7-18); CALCIUM 8.9 mg/dL (8.5-10.1); CREATININE 0.5 mg/dL (0.55-1.3); MAGNESIUM 2.3 mg/dL (1.8-2.4); POTASSIUM 3.4 mmol/L (3.5-5.1)
--- NOTE | 2018-11-16 08:31 | PN ---
Progress Note (short form) - Note Progress Note: Hospitalist to document today. 2nd similar event in the last 2 months. No actual explanation has been discovered. Await Neurology MD. ? Atypical seizure; will order EEG.
[2018-11-16] MEDS ORDERED: DEXTROSE 5%-WATER - 50 ML IVPB ONE (09:02)
[2018-11-16] MEDS ORDERED: cefTRIAXone SODIUM 1 GM VIAL ONE (09:02)
--- NOTE | 2018-11-16 09:13 | CONSULT ---
Consult - text type - Consultation Consultation Note: Neurology CHIEF COMPLAINT: Lightheadedness PCP: Dr. Ron HISTORY OF PRESENT ILLNESS: 63 y/o F with PMHx of HTN, HLD, Anxiety, ?TIA (10/2018) presents for with lightheadedness. Patient was in her usual state of health the day prior to admission. She did not eat dinner the prior evening nor breakfast the morning of admission. Suddenly while sitting at her desk, she became lightheaded and told her coworker to initiate a rapid response. She is unsure if she lost conciousness. She denied any associated convulsions, blurry vision, loss of bowel/bladder control, or tongue biting. She is unable to identify a triggering event. reportedly,3 months ago, while sitting in her car conversing with a coworker, patient had an episode of aphasia; She was later told by her coworker that her speech was incoherent. This episode self-resolved and patient did not seek intervention. 2 weeks ago, while on vacation in [place], patient had an episode of Amnesia, Aphasia and incoherent speech. She was escorted by her family to [facility] ([facility]) where a TIA workup was negative (as per patient). Patient was discharged on ASA and Statin and has been symptom free until this morning. She recently visited her PCP and was scheduled to visit me on 11/28. she was admitted for further evaluation and I reviewed all studies that were completed with her. MRI of the brain did not show any acute changes. Carotid Doppler showed small to moderate plaques without hemodynamically significant stenosis. Echo demonstrated normal left ventricular size and thickness. Cardiology note reviewed. Patient did report some slight right hand tremor that she has noticed but otherwise no physical abnormalities. I discussed that we could do further evaluation of her benign tremor on follow-up as an outpatient. She was in agreement with this. 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 Family History: Mother: Heart disease Father: HLD Allergies No Known Allergies Allergy (Verified 11/15/18 08:52) HOME MEDICATIONS: Home Medications Medication Instructions Recorded Metoprolol Succinate [Toprol XL -] 25 mg PO DAILY 07/17/11 Losartan Potassium [Cozaar -] 25 mg PO DAILY 09/02/14 Escitalopram Oxalate [Lexapro -] 10 mg PO DAILY 09/23/15 Amlodipine Besylate [Norvasc -] 10 mg PO DAILY 11/15/18 Aspirin 81 mg PO DAILY 11/15/18 Atorvastatin Calcium [Lipitor] 20 mg PO HS 11/15/18 REVIEW OF SYSTEMS As per [facility] PHYSICAL EXAMINATION Vital Signs - 24 hr 11/15/18 11/15/18 11/15/18 07:55 10:33 11:58 Temperature 97.8 F Pulse Rate 57 L Pulse Rate [ 65 Right Brachial] Pulse Rate [ 64 Sitting] Pulse Rate [ 69 Standing] Respiratory 18 16 Rate Blood Pressure 124/68 Blood Pressure 119/63 [Right Arm] Blood Pressure 138/61 [Sitting] Blood Pressure 100/62 [Standing] O2 Sat by Pulse 96 Oximetry (%) GENERAL: A&Ox3, NAD HEAD: NCAT EYES: PERRL, EOMI, No lid lag. EARS, NOSE, THROAT: Oropharynx clear without exudates. Moist mucous membranes. NECK: Supple, No JVD LUNGS: CTAB, No wheezes, no crackles HEART: Regular rate and rhythm, normal S1 and S2 without murmur ABDOMEN: Soft, nontender, not distended, + bowel sounds, no guarding, no rebound MUSCULOSKELETAL: No CVA tenderness EXTREMITIES: No peripheral edema. NEUROLOGICAL: Cranial nerves II-XII intact. Normal speech. Gross sensation intact throughout. 5/5 muscle strengthout. Finger to nose intact SKIN: Warm, dry Laboratory Last Values WBC 12.8 K/mm3 (4.0-10.0) H 11/15/18 09:00 RBC 4.10 M/mm3 (3.60-5.2) 11/15/18 09:00 Hgb 12.3 GM/dL (10.7-15.3) 11/15/18 09:00 Hct 37.1 % (32.4-45.2) 11/15/18 09:00 MCV 90.5 fl (80-96) 11/15/18 09:00 MCH 30.0 pg (25.7-33.7) 11/15/18 09:00 MCHC 33.2 g/dl (32.0-36.0) 11/15/18 09:00 RDW 14.4 % (11.6-15.6) 11/15/18 09:00 Plt Count 142 K/MM3 (134-434) 11/15/18 09:00 MPV 7.3 fl (7.5-11.1) L 11/15/18 09:00 Absolute Neuts (auto) 5.3 K/mm3 (1.5-8.0) 11/15/18 09:00 Neutrophils % 41.7 % (42.8-82.8) L D 11/15/18 09:00 Lymphocytes % 51.7 % (8-40) H 11/15/18 09:00 Monocytes % 4.7 % (3.8-10.2) 11/15/18 09:00 Eosinophils % 1.6 % (0-4.5) 11/15/18 09:00 Basophils % 0.3 % (0-2.0) 11/15/18 09:00 Nucleated RBC % 0 % (0-0) 11/15/18 09:00 Sodium 139 mmol/L (136-145) 11/15/18 08:53 Potassium 3.9 mmol/L (3.5-5.1) 11/15/18 08:53 Chloride 106 mmol/L (98-107) 11/15/18 08:53 Carbon Dioxide 25 mmol/L (21-32) 11/15/18 08:53 Anion Gap 7 MMOL/L (8-16) L 11/15/18 08:53 BUN 15.3 mg/dL (7-18) 11/15/18 08:53 Creatinine 0.8 mg/dL (0.55-1.3) 11/15/18 08:53 Est GFR (CKD-EPI)AfAm 90.30 11/15/18 08:53 Est GFR (CKD-EPI)NonAf 77.91 11/15/18 08:53 POC Glucometer 117 UNITS (80-120) 11/15/18 07:53 Random Glucose 97 mg/dL (74-106) 11/15/18 08:53 Calcium 8.9 mg/dL (8.5-10.1) 11/15/18 08:53 Total Bilirubin 0.4 mg/dL (0.2-1) 11/15/18 08:53 AST 17 U/L (15-37) 11/15/18 08:53 ALT 20 U/L (13-61) 11/15/18 08:53 Alkaline Phosphatase 113 U/L (45-117) 11/15/18 08:53 Troponin I < 0.02 ng/ml (0.00-0.05) 11/15/18 08:53 Total Protein 6.8 g/dl (6.4-8.2) 11/15/18 08:53 Albumin 3.8 g/dl (3.4-5.0) 11/15/18 08:53 Urine Color Dk yellow 11/15/18 09:30 Urine Appearance Turbid 11/15/18 09:30 Urine pH 5.0 (5.0-8.0) 11/15/18 09:30 Ur Specific [place] 1.027 (1.010-1.035) 11/15/18 09:30 Urine Protein Trace (NEGATIVE) 11/15/18 09:30 Urine Glucose (UA) Negative (NEGATIVE) 11/15/18 09:30 Urine Ketones Trace (NEGATIVE) H 11/15/18 09:30 Urine Blood Negative (NEGATIVE) 11/15/18 09:30 Urine Nitrite Negative (NEGATIVE) 11/15/18 09:30 Urine Bilirubin 1+ (NEGATIVE) H 11/15/18 09:30 Urine Urobilinogen 1.0 mg/dL (0.2-1.0) 11/15/18 09:30 Ur Leukocyte Esterase 2+ (NEGATIVE) H 11/15/18 09:30 Urine WBC (Auto) 65 /hpf (0-5) 11/15/18 09:30 Urine RBC (Auto) 2 /hpf (0-4) 11/15/18 09:30 Urine Casts (Auto) 285 /lpf (0-8) 11/15/18 09:30 U Pathogenic Cast Auto None seen /lpf (NEGATIVE) 11/15/18 09:30 U Epithel Cells (Auto) 20.2 /HPF (0-5/HPF) 11/15/18 09:30 Urine Bacteria (Auto) 34.4 /hpf (NEGATIVE) 11/15/18 09:30 ASSESSMENT/PLAN: 63 y/o F with PMHx of HTN, HLD, Anxiety, ?TIA (10/2018) presents for with lightheadedness. Patient was in her usual state of health the day prior to admission. She did not eat dinner the prior evening nor breakfast the morning of admission. Suddenly while sitting at her desk, she became lightheaded and told her coworker to initiate a rapid response. She is unsure if she lost conciousness. She denied any associated convulsions, blurry vision, loss of bowel/bladder control, or tongue biting. She is unable to identify a triggering event. reportedly,3 months ago, while sitting in her car conversing with a coworker, patient had an episode of aphasia; She was later told by her coworker that her speech was incoherent. This episode self-resolved and patient did not seek intervention. 2 weeks ago, while on vacation in [place], patient had an episode of Amnesia, Aphasia and incoherent speech. She was escorted by her family to [facility] ([facility]) where a TIA workup was negative (as per patient). Patient was discharged on ASA and Statin and has been symptom free until this morning. She recently visited her PCP and was scheduled to visit me on 11/28. she was admitted for further evaluation and I reviewed all studies that were completed with her. MRI of the brain did not show any acute changes. Carotid Doppler showed small to moderate plaques without hemodynamically significant stenosis. Echo demonstrated normal left ventricular size and thickness. Cardiology note reviewed. Patient did report some slight right hand tremor that she has noticed but otherwise no physical abnormalities. I discussed that we could do further evaluation of her benign tremor on follow-up as an outpatient. She was in agreement with this. Cardiac follow-up recommended, maintain adequate hydration, can continue aspirin and statin. continue treatment for urinary tract infection, antibiotics as per primary team. Monitor blood pressure, maintain normotensive range
[2018-11-16] MEDS ORDERED: POTASSIUM CHLORIDE TABS 20 MEQ TABLET.ER (FP) PO ONE (09:45)
[2018-11-16] MEDS ORDERED: CEFTRIAXONE 1 GM in DEXTROSE 5%-WATER - 50 ML IVPB SCH (10:00)
[2018-11-16] MEDS ORDERED: ASPIRIN COATED 81 MG TABLET.EC PO SCH (10:00)
[2018-11-16] MEDS: SODIUM CHLORIDE 1,000 ML IV SCH (11:11)
[2018-11-16 11:37] VITALS: BP 161/80; PULSE 88; TEMP 98.2
[2018-11-16 11:40] LABS: ANISOCYTOSIS 0; MACROCYTOSIS 0; PLATELET ESTIMATE DECREASED
--- NOTE | 2018-11-16 13:49 | PN ---
Teaching Attending Note Name of Resident: Freya Fragoso ATTENDING PHYSICIAN STATEMENT I saw and evaluated the patient. I reviewed the resident's note and discussed the case with the resident. I agree with the resident's findings and plan as documented. SUBJECTIVE: No fever or chills. patel snot feel dizzy or light headed. has no HANSNO, visual changes,or weakness. denied dysuria , feevr , or abd pain Feels back to her base line and walked to bathroom with no trouble. feels anxious OBJECTIVE: ortho VS: supine 135/75, sitting 125/73, standing 129/67 NAD, awake, alert adn pleasant MMM, no JVD, no facial droop CV: RRR, no MRG Lungs: CTAB Ext: No edema or erythema. patient stood up with no dizziness. ASSESSMENT AND PLAN: 63 y/o lady with h/o HTN, HLD, Anxiety, recent TIA workup in another hospital who presented with near syncope 1- Near syncope: due to orthostatic hypotension. all studies reviewd and not revealing. EEG pendign and will be followed by PCP,pt was made aware. repeat VS did not show orthostasis will ask her to resume metoprolol and losartan but not Norvasc at dc ( norvasc was recently added ) advised her to stay hydrated 2- HTN: as above 3- pyuria: no signs of UTI and neg urine cx. no evidence fo UTI. dc abx. 4- hypophosphatemia: replete . dc home . f/u with card , PCP and neuro
[2018-11-16] MEDS ORDERED: NAPH,MB-DB/K PH,MBDB POWDER PACKET PO ONE (14:00)
--- NOTE | 2018-11-16 18:12 | DS ---
Physical Exam: SUBJECTIVE: Patient seen and examined. Patient was getting up from bed and ambulating with no feeling of dizziness. Pt endorsed feeling much better. OBJECTIVE: Vital Signs Period Temp Pulse Resp BP Sys/Locke Pulse Ox Last 24 Hr 98.2 F-99.1 F 73-95 18-20 142-164/75-88 92-100 PHYSICAL EXAM GENERAL: The patient is awake, alert, and fully oriented, in no acute distress. HEAD: Normal with no signs of trauma. LUNGS: Breath sounds equal, clear to auscultation bilaterally, no wheezes, no crackles, no accessory muscle use. HEART: Regular rate and rhythm, S1, S2 without murmur, rub or gallop. ABDOMEN: Soft, nontender, nondistended, normoactive bowel sounds, no guarding, no rebound, no hepatosplenomegaly, no masses. EXTREMITIES: 2+ pulses, warm, well-perfused, no edema. NEUROLOGICAL: Cranial nerves II through XII grossly intact. Normal speech, gait not observed. PSYCH: Normal mood, normal affect. SKIN: Warm, dry, normal turgor, no rashes or lesions noted. LABS Laboratory Results - last 24 hr 11/16/18 11/16/18 11/16/18 07:00 07:00 07:00 WBC 10.0 RBC 4.30 Hgb 12.9 Hct 38.2 MCV 89.0 MCH 30.1 MCHC 33.9 RDW 14.3 Plt Count 132 L MPV 7.5 Absolute Neuts (auto) 3.2 Neutrophils % 32.3 L D Neutrophils % (Manual) 41.0 L Band Neutrophils % 0.0 Lymphocytes % 61.2 H Lymphocytes % (Manual) 56.0 H D Monocytes % 5.5 Monocytes % (Manual) 3 L Eosinophils % 0.6 Eosinophils % (Manual) 0.0 D Basophils % 0.4 Basophils % (Manual) 0.0 Myelocytes % (Man) 0 Promyelocytes % (Man) 0 Blast Cells % (Manual) 0 Nucleated RBC % 0 Metamyelocytes 0 Hypochromia 0 Platelet Estimate Decreased Polychromasia 0 Poikilocytosis 0 Anisocytosis 0 Microcytosis 0 Macrocytosis 0 Sodium 144 Potassium 3.4 L Chloride 109 H Carbon Dioxide 21 Anion Gap 14 BUN 8.7 Creatinine 0.5 L Est GFR (CKD-EPI)AfAm 118.54 Est GFR (CKD-EPI)NonAf 102.28 Random Glucose 97 Hemoglobin A1c % 5.9 Calcium 8.9 Phosphorus 2.0 L Magnesium 2.3 Total Bilirubin 0.8 AST 15 ALT 18 Alkaline Phosphatase 116 Total Protein 7.0 Albumin 4.0 Triglycerides 121 Cholesterol 144 Total LDL Cholesterol 74 HDL Cholesterol 50 TSH 0.52 EKG (11/15/2018): Sinus bradycardia, but otherwise normal. When compared to prior EKG of 09/23/2015, no significant changes found. Echo (11/15/2018): The left ventricular size, thickness, and function are normal with EF of 65%. The left atrium is mildly dilated. There is mild mitral regurgitation, trace tricuspid regurgitation, and mild aortic regurgitation. No hemodynamically significant valvular aortic stenosis. There was insufficient TR detected to calculate right ventricular systolic pressure. Carotid Doppler Study (11/15/2018): There are small to moderate-size plaques at the right common carotid bifurcation/bulb as well as intimal thickening and small to moderate-size plaques at the left common carotid bifurcation/bulb without evidence of hemodynamically significant stenosis, bilaterally. Head CT (11/15/2018): Moderate volume loss and mild periventricular chronic microvascular ischemic changes. No acute intracranial pathology is identified. Mild focal mucosal thickening in the sphenoid sinus, posteriorly. Brain MRI (11/15/2018): No acute infarct is identified HOSPITAL COURSE: Date of Admission:11/15/18 This is a 63yo F with a PMH of HTN, HLD, anxiety, and possible TIA (in October of 2018) who presented with the complaint of lightheadedness. Work up for the TIA in October was done at [facility] ([facility] in [place]. Records were obtained and showed that the workup had all come back negative and she was discharged home on Aspirin and Atorvastatin. The patient was admitted to [facility] on 11/15/2018 for a rule out TIA. An echo was done and cardiac pathology was ruled out. A carotid doppler study, CT head, and MRI of the brain revealed no acute pathology. While she was here, she was found to have orthostatic hypotension. Home BP medications Toprol, Cozaar, and Norvasc were held and her symptoms improved with IV fluids. She is being discharged with the diagnosis of orthostatic hypotension and the following changes in her medications: Aspirin dose is being reduced to 81mg daily and Norvasc is being discontinued. She will have outpatient follow-up appointments with her neurologist Dr. Lerma, blood bank laboratory technologist Dr. Parks, and PCP Dr. Ron. Date of Discharge: 11/16/18 Minutes to complete discharge: 35 Discharge Summary Reason For Visit: SYNCOPE Condition: Improved - Instructions Diet, Activity, Other Instructions: You came into the ED because you were experiencing lightheadedness and your blood pressure was found to be significantly low when you went from laying down to standing which we think caused your symptoms. We did a scan of your head and an MRI of your brain which showed no acute pathology. We also did an ultrasound of your heart which had no acute finding. We also ordered a carotid study and no finding were significant enough to cause your symptoms. You were seen by both a blood bank laboratory technologist and neurologist. You symptoms have improved and we are discharging you home. Medications: We made some changes to your medications: We are decreasing your Aspirin from 325 mg to 81mg daily Please resume your home medications except: Please do not continue taking Norvasc until following up with your PCP or blood bank laboratory technologist Follow ups: Please follow up with Dr. Ron within one week Please follow up with Dr. Parks, the blood bank laboratory technologist within one week Please follow up with the neurologist, Dr. Lerma *if you begin to experience worsening dizziness, chest pains, shortness of breath, nausea please return to the emergency room immediately stay hydrated Referrals: Christian Ron MD [Primary Care Provider] - 1 Week Thien Parks MD [Staff Physician] - 1 Week Mahesh Lerma MD [Staff Physician] - 1 Week Disposition: HOME - Home Medications Comprehensive Discharge Medication List: Ambulatory Orders Metoprolol Succinate [Toprol XL -] 100 mg PO DAILY 07/17/11 Losartan Potassium [Cozaar -] 25 mg PO DAILY 09/02/14 Escitalopram Oxalate [Lexapro -] 5 mg PO DAILY 09/23/15 Atorvastatin Calcium [Lipitor] 40 mg PO HS 11/15/18 Cholecalciferol (Vitamin D3) [Vitamin D3] 2,000 unit PO DAILY 11/15/18 Gabapentin 300 mg PO TID 11/15/18 traZODone HCL [Trazodone HCl] 100 mg PO HS 11/15/18 Aspirin Coated [Ecotrin -] 81 mg PO DAILY #30 tablet.ec 11/16/18 This patient is new to me today: Yes Date on this admission: 11/16/18 Emergency Visit: Yes ED Registration Date: 11/15/18 Care time: The patient presented to the Emergency Department on the above date and was hospitalized for further evaluation of their emergent condition. Critical Care patient: No - Discharge Referral Referred to [facility] Med P.C.: No ATTENDING PHYSICIAN STATEMENT I saw and evaluated the patient. I reviewed the resident's note and discussed the case with the resident. I agree with the resident's findings and plan as documented. SUBJECTIVE: OBJECTIVE: ASSESSMENT AND PLAN:
== END 2018-11-16 14:28 | disposition home or self-care (01) | DRG 312 ==
LOC: JER 07:47 → JERBED 10:25 → OBSVTOIN 11:45 → J4S 18:09
PROVIDERS: ADMIT Internal Medicine; ATTEND Internal Medicine
DX: I95.1 Orthostatic hypotension (principal); N39.0 Urinary tract infection, site not specified; I10 Essential (primary) hypertension; E83.39 Other disorders of phosphorus metabolism; E86.0 Dehydration; R26.9 Unspecified abnormalities of gait and mobility; E78.5 Hyperlipidemia, unspecified; F41.9 Anxiety disorder, unspecified
CPT/HCPCS: 36415; 70450-TC; 70551-TC; 80053; 80061; 81003; 82533; 82962; 83036; 83721; 83735; 84100; 84443; 84484; 85025; 87086; 93005; 93010; 93306-TC; 93880-TC; 95816; 97161-GP; 99285-25; G0378; J1644; J7030

== ENCOUNTER 2019-03-14 12:52 | Inpatient (IN) | payer OTHER ==
[2019-03-14] MEDS ORDERED: SODIUM CHLORIDE 1,000 ML IV SCH (13:00)
--- NOTE | 2019-03-14 13:18 | PDOC ---
History of Present Illness - General Chief Complaint: Altered Mental Status Stated Complaint: Altered Mental Status Time Seen by Provider: 03/14/19 13:00 tPA Exclusion Checklist 0-3hr - Time Elapsed Date last known well: 03/12/19 (Per coworkers, 3 days of confusion. Per daughter , last spoke on phone at 1120 today and was baseline and oriented.) Time last known well: 08:00 Elaspsed time: 2 Day(s) and 12 Hour(s) and 0 Minutes - Ineligibility reason(s) Reasons No tPA given: Outside of window - delayed arrival NIH Stroke Scale - Last Known Well Date/Time & Onset Date Last Known Well: 03/12/19 (Per coworkers, 3 days of confusion. Per daughter , last spoke on phone at 1120 today and was baseline and oriented.) Time Last Known Well: 08:00 - Initial Evaluation Level of consciousness: Alert Ask patient the month and their age: Answers one correctly Ask patient to open & close eyes; make fist and let go: Obeys both correctly Best gaze (horizontal eye movement): Normal Visual field testing: No visual field loss Facial paresis (Show teeth/raise eyebrows/close eyes tight): Normal symmetrical movement Motor Function: Left Arm: Normal Motor Function: Right Arm: Normal (extends arm 90 (or 45) degrees for 10 seconds without drift Motor Function: Left Leg: Normal (extends leg 30 degrees for 5 seconds without drift) Motor Function: Right Leg: Normal (extends leg 30 degrees for 5 seconds without drift) Limb Ataxia: No ataxia Sensory(Use pinprick test arms,legs,trunk,face/side to side): Normal Best language (Describe picture, name items, read sentences): Severe aphasia Dysarthria (read several words): Normal articulation Extinction and Inattention: No abnormality - Total Score NIH Stroke Scale Score: 3 Past History - Past Medical History Allergies/Adverse Reactions: Allergies Allergy/AdvReac Type Severity Reaction Status Date / Time No Known Allergies Allergy Verified 03/14/19 13:06 Home Medications: Ambulatory Orders Metoprolol Succinate [Toprol XL -] 50 mg PO DAILY 07/17/11 Losartan Potassium [Cozaar -] 50 mg PO DAILY 09/02/14 Escitalopram Oxalate [Lexapro -] 5 mg PO DAILY 09/23/15 Atorvastatin Calcium [Lipitor] 40 mg PO DAILY 11/15/18 Cholecalciferol (Vitamin D3) [Vitamin D3] 2,000 unit PO DAILY 11/15/18 Gabapentin 300 mg PO TID 11/15/18 traZODone HCL [Trazodone HCl] 100 mg PO HS 11/15/18 Anemia: No Asthma: No Cancer: No Cardiac Disorders: No CVA: No (tia 10/2018) COPD: No CHF: No Dementia: No Diabetes: No GI Disorders: No Disorders: No HTN: Yes Hypercholesterolemia: Yes Liver Disease: No Psychiatric Problems: Yes (ANXIETY.) Seizures: No Thyroid Disease: No - Surgical History Abdominal Surgery: Yes Appendectomy: No Cardiac Surgery: No Cholecystectomy: No Lung Surgery: No Neurologic Surgery: No Orthopedic Surgery: No - Psycho Social/Smoking Cessation Hx Smoking History: Unknown if ever smoked Have you smoked in the past 12 months: No Number of Cigarettes Smoked Daily: 2 If you are a former smoker, when did you quit?: 11/12 'Breaking Loose' booklet given: 07/17/11 Hx Alcohol Use: No Drug/Substance Use Hx: No Substance Use Type: None Hx Substance Use Treatment: No *Physical Exam - Vital Signs Last Vital Signs Temp Pulse Resp BP Pulse Ox 97.0 F L 77 16 175/85 H 99 03/14/19 12:55 03/14/19 12:55 03/14/19 12:55 03/14/19 12:55 03/14/19 12:55 ED Treatment Course - LABORATORY CBC & Chemistry Diagram: 03/14/19 13:05 03/14/19 13:05 - ADDITIONAL ORDERS Additional order review: Laboratory Results 03/14/19 12:55 POC Glucometer 101 03/14/19 12:55 POC Glucometer 101 Medical Decision Making - Medical Decision Making 03/14/19 13:55 HPI: 63yo F [employer] employee hx "temporary amnesia" per daughter, HTN, HLD, anxiety, smoking, and orthostatic hypotension presents by [facility] for AMS x3 days , hx of 3 similar episodes since 08/2018 and negative w/u here 11/15/18. Pt states she is confused but does not know why. Pt cannot state anything that happened today. Pt cannot state when she last was normal or not confused. Pt makes incomprehensible sentences. Pt works in outpatient registration here. Per coworkers, pt has had trouble logging in requiring multiple password resets for the past 3 days. Coworkers state she has also had trouble remembering tasks and completing simple assignments, getting confused and needing to be redirected/ retold. Today pt returned from lunch break and was once again confused and unable to log in so they called [facility]. Per daughter Tammy, she last saw pt normal on . She did speak to pt on phone today at 1120 and states the pt was normal at her baseline, completely alert and oriented without any confusion. Denies hx dementia. Daughter states she has had 3 similar episodes since 08/2018 both outside of work and at work, with multiple workups at different hospitals with the dx of "temporary amnesia". Last episode pt was admitted here with negative w/u in 11/15/18. Pt denies fever, chills, fatigue, headache, dizziness, numbness/tingling, weakness, vision changes, shortness of breath, cough, chest pain, palpitations, leg swelling, abdominal pain, blood in stool, diarrhea, constipation, nausea, vomiting, dysuria, hematuria. ROS: Constitutional: Negative for chills, fever, fatigue, diaphoresis. HENT: Negative for sore throat, rhinorrhea, congestion. Eyes: Negative for visual disturbance. Respiratory: Negative for shortness of breath, cough, and wheezing. Cardiovascular: Negative for chest pain, palpitations, and leg swelling. Gastrointestinal: Negative for abdominal pain, blood in stool, constipation, diarrhea, nausea, and vomiting. Genitourinary: Negative for dysuria, flank pain, and hematuria. Musculoskeletal: Negative for myalgias, back pain, and neck pain. Skin: Negative for rash. Neurological: Positive for confusion. Negative for light-headedness, dizziness, vertigo, syncope, weakness, numbness and headaches. Psychiatric/Behavioral: Negative for behavioral problems. PE: Gen: Alert, NAD, comfortable-appearing. HEENT: PERRL, EOMI, MMM, NCAT. No conjunctival pallor. Sclera are non-icteric. Oropharynx is clear. CV: Regular rate and rhythm. No murmurs, rubs, or gallops. PULM: No resp distress. CTAB, no wheezes, rales, or rhonchi. ABD: soft, NT/ND, no rebound tenderness or guarding, no CVA tenderness. BACK: No TTP of c/t/l-spine. No step-offs or deformities. MSK: No bony deformities. 2+ pulses in all extremities. NEURO: AAOx2 (to name and place only, not to date or situation). PERRL. CN 2-12 intact. 5/5 strength in all extremities. Sensation to light touch intact in all extremities. No pronator drift. No dysmetria. No dysdiadochokinesia. No abnormal nystagmus. Normal gait. Severe aphasia. No dysarthria. No facial droop. NIHSS 3: does not know age, unable to identify pictures or describe scene EXTREMITIES: No cyanosis. No clubbing. No edema. No calf tenderness. PSYCH: Tangential thought pattern. Normal mood. SKIN: Warm and dry. Normal capillary refill. No rashes. No jaundice. MDM: 63yo F [employer] employee hx "temporary amnesia" per daughter, HTN, HLD, anxiety, smoking, and orthostatic hypotension presents by [facility] for AMS x3 days , hx of 3 similar episodes since 08/2018 and negative w/u here 11/15/18. Hemodynamically stable, BP 175/85, afebrile, confused, AAOx2 (name and place only), severe aphasia. NIHSS 3: not knowing age and inability to identify pictures or describe scene. LKN 0800 03/12/19. Spoke with pt's daughter Tammy at [phone] for further hx. Ddx: stroke, ICH, TGA, HTN emergency, metabolic derangement, thyroid pathology, ACS/NV, arrhythmia, anemia, infection (eg UTI,PNA) -Code styles called -Finger stick: 101 -EKG: NSR, 68bpm, normal intervals, normal axis, no TWIs, no ST elevations or depressions -CTH: negative for acute pathology -CBC,CMP,Mg,Phos,Coags,Cardiac profile,TSH,HDL,LDL,TGs,UA/UC,T&S -IVF -Aspirin -Takes statin daily -cardiac monitor technician -Paged PCP Dr Ron -Consult Neurology - seen by Dr Lerma during last admission 11/15/18 -Dispo: pending w/u and consult 03/14/19 14:[address] Ron - recommends to call Dr Lerma first for neuro, if doesn't respond or doesn't wish to take pt, call director television Dr Dai. Paged Dr Lerma. 03/14/19 14:22 Labs reviewed. CBC,CMP WBC 14.9 K/mm3 (4.0-10.0) H 03/14/19 13:05 RBC 4.64 M/mm3 (3.60-5.2) 03/14/19 13:05 Hgb 13.4 GM/dL (10.7-15.3) 03/14/19 13:05 Hct 41.4 % (32.4-45.2) 03/14/19 13:05 MCV 89.3 fl (80-96) 03/14/19 13:05 MCH 28.9 pg (25.7-33.7) 03/14/19 13:05 MCHC 32.3 g/dl (32.0-36.0) 03/14/19 13:05 RDW 14.3 % (11.6-15.6) 03/14/19 13:05 Plt Count 144 K/MM3 (134-434) 03/14/19 13:05 MPV 7.8 fl (7.5-11.1) 03/14/19 13:05 Absolute Neuts (auto) 5.2 K/mm3 (1.5-8.0) 03/14/19 13:05 Neutrophils % 34.8 % (42.8-82.8) L 03/14/19 13:05 Lymphocytes % 58.3 % (8-40) H 03/14/19 13:05 Monocytes % 5.2 % (3.8-10.2) 03/14/19 13:05 Eosinophils % 1.5 % (0-4.5) D 03/14/19 13:05 Basophils % 0.2 % (0-2.0) 03/14/19 13:05 Nucleated RBC % 0 % (0-0) 03/14/19 13:05 Sodium 139 mmol/L (136-145) 03/14/19 13:05 Potassium 3.7 mmol/L (3.5-5.1) 03/14/19 13:05 Chloride 106 mmol/L (98-107) 03/14/19 13:05 Carbon Dioxide 24 mmol/L (21-32) 03/14/19 13:05 Anion Gap 9 MMOL/L (8-16) 03/14/19 13:05 BUN 16.1 mg/dL (7-18) 03/14/19 13:05 Creatinine 0.7 mg/dL (0.55-1.3) 03/14/19 13:05 Est GFR (CKD-EPI)AfAm 106.12 03/14/19 13:05 Est GFR (CKD-EPI)NonAf 91.56 03/14/19 13:05 POC Glucometer 101 UNITS (80-120) 03/14/19 12:55 Random Glucose 97 mg/dL (74-106) 03/14/19 13:05 Calcium 8.6 mg/dL (8.5-10.1) 03/14/19 13:05 Phosphorus 3.2 mg/dL (2.5-4.9) 03/14/19 13:05 Magnesium 2.1 mg/dL (1.8-2.4) 03/14/19 13:05 Total Bilirubin 0.5 mg/dL (0.2-1) 03/14/19 13:05 AST 17 U/L (15-37) 03/14/19 13:05 ALT 33 U/L (13-61) 03/14/19 13:05 Alkaline Phosphatase 147 U/L (45-117) H 03/14/19 13:05 Creatine Kinase 68 U/L (26-192) 03/14/19 13:05 Troponin I < 0.02 ng/ml (0.00-0.05) 03/14/19 13:05 Total Protein 7.6 g/dl (6.4-8.2) 03/14/19 13:05 Albumin 4.1 g/dl (3.4-5.0) 03/14/19 13:05 Triglycerides 246 mg/dL (0-150) H 03/14/19 13:05 Cholesterol 155 mg/dL (50-200) 03/14/19 13:05 Total LDL Cholesterol 86 mg/dL (5-100) 03/14/19 13:05 HDL Cholesterol 46 mg/dL (40-60) 03/14/19 13:05 TSH 0.95 uIU/ml (0.358-3.74) 03/14/19 13:05 03/14/19 14:[address] Lerma - will see pt today. Requests MRI brain only due to other tests done recently 11/2018. Will admit to stroke unit. Discussed with pt concerns and agreed to stay for MRI and further evaluation. Microblog sent to hospitalist. 03/14/19 14:59 2 times pt has told RN she wants to go home. I have gone back three times and each time pt states she wants to go home. She states she is no longer confused anymore. She is now A&Ox4 but her speech remains confused and she inserts random nonsensical words and phrases into sentences without realizing it. I informed her of risks of leaving, our concern for stroke, and reasons we want to admit her. Each time she states she understands and will stay and be admitted and get the MRI. Each time I return she does not remember the prior conversation and states she wants to leave. Due to her lack of insight and understanding of her confusion, she lacks capacity to make the decision to leave and to take care of herself at home (lives alone). 03/14/19 15:07 Signed out to admitting resident. Discharge - Discharge Information Problems reviewed: Yes Clinical Impression/Diagnosis: Altered mental status, Aphasia Condition: Stable - Admission Yes - Follow up/Referral - Patient Discharge Instructions - Post Discharge Activity
[2019-03-14 13:38] LABS: BASO % 0.2 % (0-2.0); EOS % 1.5 % (0-4.5); HEMATOCRIT 41.4 % (32.4-45.2); HEMOGLOBIN 13.4 GM/dL (10.7-15.3); LYMPH % 58.3 % (8-40); MCH 28.9 pg (25.7-33.7); MCHC 32.3 g/dl (32.0-36.0); MEAN CELL VOLUME 89.3 fl (80-96); MEAN PLT VOLUME 7.8 fl (7.5-11.1); MONO % 5.2 % (3.8-10.2); NEUT % 34.8 % (42.8-82.8); PLATELET COUNT 144 K/MM3 (134-434); RBC 4.64 M/mm3 (3.60-5.2); RDW 14.3 % (11.6-15.6); WHITE BLOOD COUNT 14.9 K/mm3 (4.0-10.0)
[2019-03-14 13:57] LABS: ALBUMIN 4.1 g/dl (3.4-5.0); BILIRUBIN,TOTAL 0.5 mg/dL (0.2-1); BLOOD UREA NITROGEN 16.1 mg/dL (7-18); CALCIUM 8.6 mg/dL (8.5-10.1); CREATININE 0.7 mg/dL (0.55-1.3); POTASSIUM 3.7 mmol/L (3.5-5.1); TOT PROT 7.6 g/dl (6.4-8.2)
[2019-03-14 14:05] LABS: INR 1.02 (0.83-1.09)
[2019-03-14 14:07] LABS: ACTIVATED PTT 30.2 SECONDS (25.2-36.5)
--- NOTE | 2019-03-14 14:14 | RAPID ---
<TariBalnico S - Last Filed: 03/14/19 16:50> Physical Examination Vital Signs: Vital Signs Temperature 97.0 F L 03/14/19 12:55 Pulse Rate 71 03/14/19 13:26 Respiratory Rate 20 03/14/19 13:26 Blood Pressure 171/76 H 03/14/19 13:26 O2 Sat by Pulse Oximetry (%) 100 03/14/19 14:02 Rapid response called at 1241 Rapid response team arrived immediately. Told that for the last few days patient has been having repeated difficulties logging into her computer and IT has had to reset her account each time. Today, after lunch patient has having even more difficulty logging into her account, was confused, and stating that she did not feel well and wanted to go home. Patient was seen. Oriented x1-2 (to self and date but not year or place). Patient with tangential and confused speech. Initially stating that she does not want to stay in the hospital but then agreed to go to ED for further evaluation. Patient comfortable but confused appearing. Transported to ED via wheelchair for further evaluation. Labs: CBC, LISETH 03/14/19 13:05 03/14/19 13:05 <Josh Martinez - Last Filed: 03/18/19 12:18> Physical Examination Vital Signs: Labs: CBC, BMP 03/15/19 06:02 03/15/19 06:02 Critical Care Total Critical Care Time (in minutes): 25
[2019-03-14 14:15] LABS: MAGNESIUM 2.1 mg/dL (1.8-2.4); PHOSPHOROUS 3.2 mg/dL (2.5-4.9)
[2019-03-14] MEDS ORDERED: ASPIRIN 81 MG CHEWABLE TABLETS PO ONE ×2 (14:23)
--- NOTE | 2019-03-14 14:34 | PDOC ---
Attending Attestation - Resident Resident Name: Stacey Varma - ED Attending Attestation I have performed the following: I have examined & evaluated the patient, The case was reviewed & discussed with the resident, I agree w/resident's findings & plan, Exceptions are as noted - HPI HPI: 03/14/19 15:18 63-year-old woman with past medical history significant for hypertension hyperlipidemia anxiety questionable TIA in 2019 presents to the emergency department with acute/subacute confusion. Patient works here at the hospital - Physicial Exam PE: 03/14/19 15:18 Vitals: Triage Vital signs reviewed General Appearance: No acute distress, well nourished well developed, Head: Atraumatic, Neck: Supple; no Nucal rigidity Chest Wall: Nontender Cardiac: Regular rate and rhythym, no murmurs, no rubs, no gallops, Lungs: Clear to auscultation bilateral, good air movement bilaterally, Abdomen: Soft, non distended, normal bowel sounds, non tender to palpation Extremities: Full range of motion to all extremities, no cyanosis, clubbing, or edema Skin: Warm and dry, no rashes or lesions, no rash, no petechiae Neuro: AOX2; cranial Nerves 2-12 grossly intact, strength intact to all extremities, sensation intact to all extremities, gait normal Psych: Normal mood, normal affect - Medical Decision Making 03/14/19 15:20 NIHSS score 3 Subacute to acute confusional syndrome starting either yesterday per patient's colleagues here at the hospital where this morning became more severe daughter stated she seemed normal on the phone this morning code richards activated stroke score is 3 no indication for TPA given amnesia as primary symptom Neurology at bedside will admit to medicine for further management MRI,
[2019-03-14] MEDS ORDERED: ASPIRIN 81 MG CHEWABLE TABLETS ONE (14:37)
--- NOTE | 2019-03-14 15:07 | CONSULT ---
Consult - text type - Consultation Consultation Note: Neurology CHIEF COMPLAINT: Confusion PCP: Dr. Ron HISTORY OF PRESENT ILLNESS: 63 y/o F with PMHx of HTN, HLD, Anxiety, ?TIA (10/2018) recently seen by me in November 2018 for with lightheadedness. During that visit, 3 months prior, while sitting in her car she reported conversing with a coworker, patient had an episode of aphasia; She was later told by her coworker that her speech was incoherent. This episode self-resolved and patient did not seek intervention. 2 weeks prior to November visit, while on vacation in [place], patient had an episode of Amnesia, Aphasia and incoherent speech. Per notes, she was escorted by her family to [facility] ([facility]) where a TIA workup was negative (as per patient). Patient was discharged on ASA and reports compliance on the medication. She presents today after having on and off confusion noted reportedly by coworkers with difficulty logged into the computer. Reportedly her daughter had stated she was at baseline yesterday but having difficulty this morning with confusion and recall. I was contacted by ER and patient would not be in TPA window and she has been having several days of symptoms. CT head did not show acute changes. Reviewed prior records from November including MRI of the brain did not show any acute changes. Carotid Doppler showed small to moderate plaques without hemodynamically significant stenosis. Echo demonstrated normal left ventricular size and thickness. During my evaluation, although she was conversive, she was not able to tell me the exact date or the name of the president. At this time, would recommend repeat MRI brain. Diagnosis of TGA (transient global amnesia) vs lacunar infarct in temporal region. If infarct found, would recommend increasing her aspirin to Aggrenox, but for now can continue her home medication regiment. 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 Family History: Mother: Heart disease Father: HLD Allergies No Known Allergies Allergy (Verified 11/15/18 08:52) HOME MEDICATIONS: Home Medications Medication Instructions Recorded Metoprolol Succinate [Toprol XL -] 25 mg PO DAILY 07/17/11 Losartan Potassium [Cozaar -] 25 mg PO DAILY 09/02/14 Escitalopram Oxalate [Lexapro -] 10 mg PO DAILY 09/23/15 Amlodipine Besylate [Norvasc -] 10 mg PO DAILY 11/15/18 Aspirin 81 mg PO DAILY 11/15/18 Atorvastatin Calcium [Lipitor] 20 mg PO HS 11/15/18 REVIEW OF SYSTEMS CONSTITUTIONAL: generalized weakness Absent: fever, chills, diaphoresis, malaise, loss of appetite, weight change HEENT: Absent: rhinorrhea, nasal congestion, throat pain, throat swelling, difficulty swallowing, visual changes CARDIOVASCULAR: Absent: chest pain, syncope, palpitations, irregular heart rate, lightheadedness , peripheral edema RESPIRATORY: Absent: cough, shortness of breath, dyspnea with exertion, orthopnea, wheezing, GASTROINTESTINAL: Absent: abdominal pain, abdominal distension, nausea, vomiting, diarrhea, constipation, melena, hematochezia GENITOURINARY: Absent: dysuria, frequency, urgency, hesitancy, hematuria, flank pain, MUSCULOSKELETAL: back pain Absent: myalgia, arthralgia, joint swelling, neck pain SKIN: Absent: rash, itching, pallor HEMATOLOGIC/IMMUNOLOGIC: Absent: easy bleeding, easy bruising, lymphadenopathy, frequent infections ENDOCRINE: Absent: unexplained weight gain, unexplained weight loss, heat intolerance, cold intolerance NEUROLOGIC: No numbness or weakness Absent: headache, paresthesias, dizziness, unsteady gait, seizure, mental status changes, bladder or bowel incontinence PSYCHIATRIC: Absent: anxiety, depression, suicidal or homicidal ideation, hallucinations. PHYSICAL EXAMINATION Vital Signs Period Temp Pulse Resp BP Sys/Locke Pulse Ox Last 24 Hr 97.0 F 71-77 16-20 171-175/76-85 99-100 GENERAL: A&Ox3, NAD HEAD: NCAT EYES: PERRL, EOMI, No lid lag. EARS, NOSE, THROAT: Oropharynx clear without exudates. Moist mucous membranes. NECK: Supple, No JVD LUNGS: CTAB, No wheezes, no crackles HEART: Regular rate and rhythm, normal S1 and S2 without murmur ABDOMEN: Soft, nontender, not distended, + bowel sounds, no guarding, no rebound MUSCULOSKELETAL: No CVA tenderness EXTREMITIES: No peripheral edema. NEUROLOGICAL: Difficulty with date and name of President. No slurred speech but ?aphasia, Gross sensation intact throughout. 5/5 muscle strengthout. Finger to nose intact SKIN: Warm, dry CBCD WBC 14.9 K/mm3 (4.0-10.0) H 03/14/19 13:05 RBC 4.64 M/mm3 (3.60-5.2) 03/14/19 13:05 Hgb 13.4 GM/dL (10.7-15.3) 03/14/19 13:05 Hct 41.4 % (32.4-45.2) 03/14/19 13:05 MCV 89.3 fl (80-96) 03/14/19 13:05 MCHC 32.3 g/dl (32.0-36.0) 03/14/19 13:05 RDW 14.3 % (11.6-15.6) 03/14/19 13:05 Plt Count 144 K/MM3 (134-434) 03/14/19 13:05 MPV 7.8 fl (7.5-11.1) 03/14/19 13:05 CMP Sodium 139 mmol/L (136-145) 03/14/19 13:05 Potassium 3.7 mmol/L (3.5-5.1) 03/14/19 13:05 Chloride 106 mmol/L (98-107) 03/14/19 13:05 Carbon Dioxide 24 mmol/L (21-32) 03/14/19 13:05 Anion Gap 9 MMOL/L (8-16) 03/14/19 13:05 BUN 16.1 mg/dL (7-18) 03/14/19 13:05 Creatinine 0.7 mg/dL (0.55-1.3) 03/14/19 13:05 Random Glucose 97 mg/dL (74-106) 03/14/19 13:05 Calcium 8.6 mg/dL (8.5-10.1) 03/14/19 13:05 Total Bilirubin 0.5 mg/dL (0.2-1) 03/14/19 13:05 AST 17 U/L (15-37) 03/14/19 13:05 ALT 33 U/L (13-61) 03/14/19 13:05 Alkaline Phosphatase 147 U/L (45-117) H 03/14/19 13:05 Total Protein 7.6 g/dl (6.4-8.2) 03/14/19 13:05 Albumin 4.1 g/dl (3.4-5.0) 03/14/19 13:05 CARDIAC ENZYMES Creatine Kinase 68 U/L (26-192) 03/14/19 13:05 Troponin I < 0.02 ng/ml (0.00-0.05) 03/14/19 13:05 ASSESSMENT/PLAN: 63 y/o F with PMHx of HTN, HLD, Anxiety, ?TIA (10/2018) recently seen by me in November 2018 for with lightheadedness. During that visit, 3 months prior, while sitting in her car she reported conversing with a coworker, patient had an episode of aphasia; She was later told by her coworker that her speech was incoherent. This episode self-resolved and patient did not seek intervention. 2 weeks prior to November visit, while on vacation in [place], patient had an episode of Amnesia, Aphasia and incoherent speech. Per notes, she was escorted by her family to [facility] ([facility]) where a TIA workup was negative (as per patient). Patient was discharged on ASA and reports compliance on the medication. She presents today after having on and off confusion noted reportedly by coworkers with difficulty logged into the computer. Reportedly her daughter had stated she was at baseline yesterday but having difficulty this morning with confusion and recall. I was contacted by ER and patient would not be in TPA window and she has been having several days of symptoms. CT head did not show acute changes. Reviewed prior records from November including MRI of the brain did not show any acute changes. Carotid Doppler showed small to moderate plaques without hemodynamically significant stenosis. Echo demonstrated normal left ventricular size and thickness. During my evaluation, although she was conversive, she was not able to tell me the exact date or the name of the president. At this time, would recommend repeat MRI brain. Diagnosis of TGA (transient global amnesia) vs lacunar infarct in temporal region. If infarct found, would recommend increasing her aspirin to Aggrenox, but for now can continue her home medication regiment. Increased Wbc, check for sources of infection, UA. Speech/ swallow eval. Monitor blood pressure, maintain < 160/90 for now, <140/90 starting 03/15. Continue statin. Frequent reorientation and maintaining conversation. DVT ppx.
[2019-03-14 15:14] LABS: EPI CELLS 1.9 /HPF (0-5/HPF); HYALINE CASTS 0 /lpf (0-8); URINE APPEARANCE CLEAR; URINE BACTERIA 20.6 /hpf (NEGATIVE); URINE BILIRUBIN NEGATIVE (NEGATIVE); URINE COLOR YELLOW; URINE GLUCOSE (UA) NEGATIVE (NEGATIVE); URINE KETONE NEGATIVE (NEGATIVE); URINE LEUK ESTERASE 1+ (NEGATIVE); URINE NITRITE NEGATIVE (NEGATIVE); URINE PROTEIN NEGATIVE (NEGATIVE); URINE RBC 0 /hpf (0-4); URINE UROBILINOGEN 0.2 mg/dL (0.2-1.0); URINE WBC 6 /hpf (0-5)
--- NOTE | 2019-03-14 15:15 | EKG ---
Test Reason : Blood Pressure : / mmHG Vent. Rate : 068 BPM Atrial Rate : 068 BPM P-R Int : 174 ms QRS Dur : 076 ms QT Int : 410 ms P-R-T Axes : 044 004 025 degrees QTc Int : 435 ms NORMAL SINUS RHYTHM NORMAL ECG WHEN COMPARED WITH ECG OF 15-NOV-2018 08:10, NO SIGNIFICANT CHANGE WAS FOUND Confirmed by MD Alonso Edward ([id number]) on 03/14/2019 3:15:16 PM Referred By: Confirmed By:Ciro Alonso MD
--- NOTE | 2019-03-14 16:12 | HP ---
CHIEF COMPLAINT: confusion PCP: Dr. Ron HISTORY OF PRESENT ILLNESS: Nadege Schmidt is a 63 year old female with a past medical history of hypertension, hyperlipidemia, anxiety, orthostatic hypotension, smoking, "temporary amnesia" episodes. A rapid response was called on the 1st floor on Registration when the patient was noted to be confused and not waking sense with her words. Refer to rapid response note for further detail. She was brought down to the emergency room for further evaluation. The patient had been having increasing amounts of difficulty logging into her account and had intermittent confusion as noticed by her coworkers. The patient was spoken to and did not recall the events of the day or how she got to the emergency department. Daughter was called and noted that the patient had been at her baseline mental status of being aware of where she was and the time and date at 11:20 this morning. Daughter noted that the patient was aware of what the events of the day had been and what her plans for the evening were at that time. Daughter also mentioned that the patient had at one point was taking excessive amount of Fioricet but had not been taking them for several months. Currently the patient denies any acute symptoms of chest pain, shortness of breath, palpitations, cough, abdominal pain, nausea, vomiting, constipation, diarrhea, numbness, tingling, focal weakness, visual deficits, tinnitus, dizziness, lightheadedness, extremity pain, rashes. Endorsed recent good appetite. Denied recent travel, sick contacts. 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 Allergies No Known Allergies Allergy (Verified 03/14/19 13:06) HOME MEDICATIONS: Home Medications Medication Instructions Recorded Metoprolol Succinate [Toprol XL -] 50 mg PO DAILY 07/17/11 Losartan Potassium [Cozaar -] 50 mg PO DAILY 09/02/14 Escitalopram Oxalate [Lexapro -] 5 mg PO DAILY 09/23/15 Atorvastatin Calcium [Lipitor] 40 mg PO DAILY 11/15/18 Cholecalciferol (Vitamin D3) 2,000 unit PO DAILY 11/15/18 [Vitamin D3] Gabapentin 300 mg PO TID 11/15/18 traZODone HCL [Trazodone HCl] 100 mg PO HS 11/15/18 REVIEW OF SYSTEMS CONSTITUTIONAL: Absent: fever, chills, diaphoresis, generalized weakness, malaise, l HEENT: Absent: rhinorrhea, nasal congestion, throat pain, throat swelling, difficulty swallowing, mouth swelling visual changes CARDIOVASCULAR: Absent: chest pain, syncope, palpitations, irregular heart rate, lightheadedness , peripheral edema RESPIRATORY: Absent: cough, shortness of breath, dyspnea with exertion, orthopnea, wheezing GASTROINTESTINAL: Absent: abdominal pain, abdominal distension, nausea, vomiting, diarrhea, constipation GENITOURINARY: Absent: dysuria, frequency, urgency, hesitancy, hematuria, flank pain MUSCULOSKELETAL: Absent: myalgia, arthralgia, joint swelling, back pain, neck pain SKIN: Absent: rash, itching, pallor HEMATOLOGIC/IMMUNOLOGIC: Absent: easy bleeding, easy bruising, lymphadenopathy, frequent infections ENDOCRINE: Absent: unexplained weight gain, unexplained weight loss, heat intolerance, cold intolerance NEUROLOGIC: mental status changes (confusion) Absent: headache, focal weakness or paresthesias, dizziness, unsteady gait, seizure, bladder or bowel incontinence PSYCHIATRIC: Absent: anxiety, depression, suicidal or homicidal ideation, hallucinations. PHYSICAL EXAMINATION Vital Signs - 24 hr 03/14/19 03/14/19 03/14/19 12:55 13:26 14:02 Temperature 97.0 F L Pulse Rate 77 Pulse Rate [ 71 Apical] Respiratory 16 20 Rate Blood Pressure 175/85 H Blood Pressure 171/76 H [Right Arm] O2 Sat by Pulse 99 100 100 Oximetry (%) 03/14/19 03/14/19 15:52 15:53 Temperature 98.1 F Pulse Rate Pulse Rate [ 74 Apical] Respiratory 18 Rate Blood Pressure Blood Pressure 166/67 [Right Arm] O2 Sat by Pulse 100 Oximetry (%) GENERAL: Awake, alert, and oriented to self and date, not oriented to location or situation, in mild acute distress. Mild tremulous. Intermittently confused about commands. HEAD: Normal with no signs of trauma. EYES: Pupils equal, round and reactive to light, extraocular movements intact, sclera anicteric, conjunctiva clear. EARS, NOSE, THROAT: Oropharynx clear without exudates. Moist mucous membranes. NECK: Normal range of motion, supple without lymphadenopathy, JVD. LUNGS: Breath sounds equal, clear to auscultation bilaterally. No wheezes, and no crackles. No accessory muscle use. HEART: Regular rate and rhythm, normal S1 and S2 without murmur, rub. ABDOMEN: Soft, nontender, not distended, normoactive bowel sounds, no guarding, no rebound, no masses. MUSCULOSKELETAL: Normal range of motion at all joints. No bony deformities or tenderness. UPPER EXTREMITIES: 2+ pulses, warm, well-perfused. No cyanosis. No clubbing. No peripheral edema. LOWER EXTREMITIES: 2+ pulses, warm, well-perfused. No calf tenderness. No peripheral edema. NEUROLOGICAL: Cranial nerves II-XII intact. 5/5 muscle strength bilaterally upper and lower extremities. Sensation intact to gross touch and pinprick. FTN and HTS intact. Gait deferred. PSYCHIATRIC: Cooperative. Good eye contact. Mildly nervous about her confusion. SKIN: Warm, dry, normal turgor, no rashes or lesions noted, normal capillary refill. NIH: 2 (1: Mild aphasia) (1: Inattention) Laboratory Results - last 24 hr 03/14/19 03/14/19 03/14/19 12:55 13:05 13:05 WBC RBC Hgb Hct MCV MCH MCHC RDW Plt Count MPV Absolute Neuts (auto) Neutrophils % Lymphocytes % Monocytes % Eosinophils % Basophils % Nucleated RBC % PT with INR 12.00 INR 1.02 PTT (Actin FS) 30.2 Sodium Potassium Chloride Carbon Dioxide Anion Gap BUN Creatinine Est GFR (CKD-EPI)AfAm Est GFR (CKD-EPI)NonAf POC Glucometer 101 Random Glucose Calcium Phosphorus 3.2 Magnesium 2.1 Total Bilirubin AST ALT Alkaline Phosphatase Creatine Kinase 68 Troponin I < 0.02 Total Protein Albumin Triglycerides Cholesterol Total LDL Cholesterol HDL Cholesterol TSH 0.95 Urine Color Urine Appearance Urine pH Ur Specific [place] Urine Protein Urine Glucose (UA) Urine Ketones Urine Blood Urine Nitrite Urine Bilirubin Urine Urobilinogen Ur Leukocyte Esterase Urine WBC (Auto) Urine RBC (Auto) Urine Casts (Auto) U Epithel Cells (Auto) Urine Bacteria (Auto) Blood Type Antibody Screen 03/14/19 03/14/19 03/14/19 13:05 13:05 13:05 WBC 14.9 H RBC 4.64 Hgb 13.4 Hct 41.4 MCV 89.3 MCH 28.9 MCHC 32.3 RDW 14.3 Plt Count 144 MPV 7.8 Absolute Neuts (auto) 5.2 Neutrophils % 34.8 L Lymphocytes % 58.3 H Monocytes % 5.2 Eosinophils % 1.5 D Basophils % 0.2 Nucleated RBC % 0 PT with INR INR PTT (Actin FS) Sodium 139 Potassium 3.7 Chloride 106 Carbon Dioxide 24 Anion Gap 9 BUN 16.1 Creatinine 0.7 Est GFR (CKD-EPI)AfAm 106.12 Est GFR (CKD-EPI)NonAf 91.56 POC Glucometer Random Glucose 97 Calcium 8.6 Phosphorus Magnesium Total Bilirubin 0.5 AST 17 ALT 33 Alkaline Phosphatase 147 H Creatine Kinase Troponin I Total Protein 7.6 Albumin 4.1 Triglycerides 246 H Cholesterol 155 Total LDL Cholesterol 86 HDL Cholesterol 46 TSH Urine Color Urine Appearance Urine pH Ur Specific [place] Urine Protein Urine Glucose (UA) Urine Ketones Urine Blood Urine Nitrite Urine Bilirubin Urine Urobilinogen Ur Leukocyte Esterase Urine WBC (Auto) Urine RBC (Auto) Urine Casts (Auto) U Epithel Cells (Auto) Urine Bacteria (Auto) Blood Type A POSITIVE Antibody Screen Negative 03/14/19 14:30 WBC RBC Hgb Hct MCV MCH MCHC RDW Plt Count MPV Absolute Neuts (auto) Neutrophils % Lymphocytes % Monocytes % Eosinophils % Basophils % Nucleated RBC % PT with INR INR PTT (Actin FS) Sodium Potassium Chloride Carbon Dioxide Anion Gap BUN Creatinine Est GFR (CKD-EPI)AfAm Est GFR (CKD-EPI)NonAf POC Glucometer Random Glucose Calcium Phosphorus Magnesium Total Bilirubin AST ALT Alkaline Phosphatase Creatine Kinase Troponin I Total Protein Albumin Triglycerides Cholesterol Total LDL Cholesterol HDL Cholesterol TSH Urine Color Yellow Urine Appearance Clear Urine pH 7.0 D Ur Specific [place] 1.007 L Urine Protein Negative Urine Glucose (UA) Negative Urine Ketones Negative Urine Blood Negative Urine Nitrite Negative Urine Bilirubin Negative Urine Urobilinogen 0.2 Ur Leukocyte Esterase 1+ H Urine WBC (Auto) 6 Urine RBC (Auto) 0 Urine Casts (Auto) 0 U Epithel Cells (Auto) 1.9 Urine Bacteria (Auto) 20.6 Blood Type Antibody Screen EKG--> NSR, no ST segment changes, Qtc 435 ASSESSMENT/PLAN: Nadege Schmidt is a 63 year old female with a past medical history of hypertension, hyperlipidemia, anxiety, orthostatic hypotension, smoking, "temporary amnesia" episodes admitted for acute confusion episode and stroke rule out. Acute Confusional Episode - likely Transient Global Amnesia vs ischemic stroke - Neurology consulted, recs appreciated - head CT noting no acute pathology, no evidence of infarct - MRI/MRA of the brain - carotid dopplers showing moderate calcified atherosclerotic plaque along the carotid arteries with no hemodynamically significant stenosis - echo - fall, dysphagia precautions - neurochecks - A1c - speech and swallow consult - continue aspirin and statin - lipid panel noting hypertriglyceridemia - physical therapy Elevated WBC - likely reactive in acute episode - patient afebrile - UA in setting of confusional episode showing 1+ LE, 6 WBC, 20 bacteria - no abx and monitor WBC count to see if it improves - if confusion and WBC do not improve, then low threshold for starting abx HTN - continue home losartan and metoprolol HLD - continue home atorvastatin Anxiety - continue home Lexapro Insomnia and Leg Pain - hold trazodone and gabapentin to avoid further confusional state DVT PPx - Lovenox 40 mg subq daily FEN - no standing fluids, encourage PO intake - continue to monitor electrolytes and replete as necessary - sodium/fat controlled diet, has passed dysphagia screen Dispo - admit to stroke telemetry - Daughter Tammy contact ([phone]) Family Medical History Family History: Denies Visit type - Emergency Visit Emergency Visit: Yes ED Registration Date: 03/14/19 Care time: The patient presented to the Emergency Department on the above date and was hospitalized for further evaluation of their emergent condition. - New Patient This patient is new to me today: Yes Date on this admission: 03/14/19 - Critical Care Critical Care patient: No
[2019-03-14 17:19] VITALS: BMI 29.0
--- NOTE | 2019-03-14 17:58 | PN ---
Teaching Attending Note Name of Resident: Santos Renee ATTENDING PHYSICIAN STATEMENT I saw and evaluated the patient. I reviewed the resident's note and discussed the case with the resident. I agree with the resident's findings and plan as documented. SUBJECTIVE: This is a 63 year old woman with a history of HTN, hyperlipidemia, anxiety, orthostatic hypotension, smoking, amnesia who comes to the ED because of confusion. While at work, she was noted to be confused. She could not log into her computer and she wasn't making sense. Her daughter says that she seemed ok as of 11:20 am today. However, co-workers report that she seemed to be having difficulties at work for the last 2 days. She cannot remember what happened today and does not know how she got to the ED. She denies CP, SOB, palpitations, dizziness, abdominal pain, nausea, diarrhea, dysuria, urinary frequency, fever, chills. OBJECTIVE: Vital Signs Period Temp Pulse Resp BP Sys/Locke Pulse Ox Last 24 Hr 97.0 F-99.2 F 71-78 16-20 166-175/67-85 97-100 HEART: S1S2, RRR LUNGS: Clear ABDOMEN: Soft, non-tender, non-distended, normal BS EXTREMITIES: No edema NEUROLOGICAL: Alert, oriented to person, speech clear, sensation intact, strength intact Laboratory Tests 03/14/19 03/14/19 03/14/19 12:55 13:05 13:05 WBC RBC Hgb Hct MCV MCH MCHC RDW Plt Count MPV Absolute Neuts (auto) Neutrophils % Lymphocytes % Monocytes % Eosinophils % Basophils % Nucleated RBC % PT with INR 12.00 INR 1.02 PTT (Actin FS) 30.2 Sodium Potassium Chloride Carbon Dioxide Anion Gap BUN Creatinine Est GFR (CKD-EPI)AfAm Est GFR (CKD-EPI)NonAf POC Glucometer 101 Random Glucose Calcium Phosphorus 3.2 Magnesium 2.1 Total Bilirubin AST ALT Alkaline Phosphatase Creatine Kinase 68 Troponin I < 0.02 Total Protein Albumin Triglycerides Cholesterol Total LDL Cholesterol HDL Cholesterol TSH 0.95 Urine Color Urine Appearance Urine pH Ur Specific [place] Urine Protein Urine Glucose (UA) Urine Ketones Urine Blood Urine Nitrite Urine Bilirubin Urine Urobilinogen Ur Leukocyte Esterase Urine WBC (Auto) Urine RBC (Auto) Urine Casts (Auto) U Epithel Cells (Auto) Urine Bacteria (Auto) Blood Type Antibody Screen 03/14/19 03/14/19 03/14/19 13:05 13:05 13:05 WBC 14.9 H RBC 4.64 Hgb 13.4 Hct 41.4 MCV 89.3 MCH 28.9 MCHC 32.3 RDW 14.3 Plt Count 144 MPV 7.8 Absolute Neuts (auto) 5.2 Neutrophils % 34.8 L Lymphocytes % 58.3 H Monocytes % 5.2 Eosinophils % 1.5 D Basophils % 0.2 Nucleated RBC % 0 PT with INR INR PTT (Actin FS) Sodium 139 Potassium 3.7 Chloride 106 Carbon Dioxide 24 Anion Gap 9 BUN 16.1 Creatinine 0.7 Est GFR (CKD-EPI)AfAm 106.12 Est GFR (CKD-EPI)NonAf 91.56 POC Glucometer Random Glucose 97 Calcium 8.6 Phosphorus Magnesium Total Bilirubin 0.5 AST 17 ALT 33 Alkaline Phosphatase 147 H Creatine Kinase Troponin I Total Protein 7.6 Albumin 4.1 Triglycerides 246 H Cholesterol 155 Total LDL Cholesterol 86 HDL Cholesterol 46 TSH Urine Color Urine Appearance Urine pH Ur Specific [place] Urine Protein Urine Glucose (UA) Urine Ketones Urine Blood Urine Nitrite Urine Bilirubin Urine Urobilinogen Ur Leukocyte Esterase Urine WBC (Auto) Urine RBC (Auto) Urine Casts (Auto) U Epithel Cells (Auto) Urine Bacteria (Auto) Blood Type A POSITIVE Antibody Screen Negative 03/14/19 14:30 WBC RBC Hgb Hct MCV MCH MCHC RDW Plt Count MPV Absolute Neuts (auto) Neutrophils % Lymphocytes % Monocytes % Eosinophils % Basophils % Nucleated RBC % PT with INR INR PTT (Actin FS) Sodium Potassium Chloride Carbon Dioxide Anion Gap BUN Creatinine Est GFR (CKD-EPI)AfAm Est GFR (CKD-EPI)NonAf POC Glucometer Random Glucose Calcium Phosphorus Magnesium Total Bilirubin AST ALT Alkaline Phosphatase Creatine Kinase Troponin I Total Protein Albumin Triglycerides Cholesterol Total LDL Cholesterol HDL Cholesterol TSH Urine Color Yellow Urine Appearance Clear Urine pH 7.0 D Ur Specific [place] 1.007 L Urine Protein Negative Urine Glucose (UA) Negative Urine Ketones Negative Urine Blood Negative Urine Nitrite Negative Urine Bilirubin Negative Urine Urobilinogen 0.2 Ur Leukocyte Esterase 1+ H Urine WBC (Auto) 6 Urine RBC (Auto) 0 Urine Casts (Auto) 0 U Epithel Cells (Auto) 1.9 Urine Bacteria (Auto) 20.6 Blood Type Antibody Screen Home Medications Medication Instructions Recorded Metoprolol Succinate [Toprol XL -] 50 mg PO DAILY 07/17/11 Losartan Potassium [Cozaar -] 50 mg PO DAILY 09/02/14 Escitalopram Oxalate [Lexapro -] 5 mg PO DAILY 09/23/15 Atorvastatin Calcium [Lipitor] 40 mg PO DAILY 11/15/18 Cholecalciferol (Vitamin D3) 2,000 unit PO DAILY 11/15/18 [Vitamin D3] Gabapentin 300 mg PO TID 11/15/18 traZODone HCL [Trazodone HCl] 100 mg PO HS 11/15/18 ASSESSMENT AND PLAN: This is a 63 year old woman with a history of HTN, hyperlipidemia, anxiety, orthostatic hypotension, smoking, amnesia who presented to the ED with confusion. 1. Altered mental status - Possible transient global amnesia, TIA/CVA, metabolic encephalopathy - Has leukocytosis - no evidence of infection - Head CT unremarkable - Plan for MRI of brain 2. HTN - Continue Cozaar, Toprol XL 3. Hyperlipidemia - Continue Lipitor 4. Anxiety - Continue Lexapro,
[2019-03-14] MEDS ORDERED: ATORVASTATIN CA 40 MG TABLET (FP) PO SCH (22:00)
[2019-03-15 06:23] LABS: BASO % 0.2 % (0-2.0); EOS % 0.3 % (0-4.5); HEMATOCRIT 38.8 % (32.4-45.2); LYMPH % 60.9 % (8-40); MCH 29.3 pg (25.7-33.7); MCHC 33.6 g/dl (32.0-36.0); MEAN CELL VOLUME 87.3 fl (80-96); MEAN PLT VOLUME 7.4 fl (7.5-11.1); MONO % 5.7 % (3.8-10.2); NEUT % 32.9 % (42.8-82.8); PLATELET COUNT 135 K/MM3 (134-434); RBC 4.45 M/mm3 (3.60-5.2); RDW 14.7 % (11.6-15.6)
[2019-03-15 07:11] LABS: ALBUMIN 3.7 g/dl (3.4-5.0); BLOOD UREA NITROGEN 9.4 mg/dL (7-18); CALCIUM 8.8 mg/dL (8.5-10.1); CREATININE 0.6 mg/dL (0.55-1.3); MAGNESIUM 2.2 mg/dL (1.8-2.4); PHOSPHOROUS 3.3 mg/dL (2.5-4.9); POTASSIUM 3.7 mmol/L (3.5-5.1)
[2019-03-15] MEDS ORDERED: LOSARTAN POTASSIUM 50 MG TABLET (FP) PO SCH (10:00)
[2019-03-15] MEDS ORDERED: ESCITALOPRAM OXALATE 10 MG TABLET (FP) PO SCH (10:00)
[2019-03-15] MEDS ORDERED: ENOXAPARIN NA (PORCINE) 40 MG/0.4 ML DISP.SYRIN SQ SCH (10:00)
[2019-03-15] MEDS ORDERED: ASPIRIN 81 MG CHEWABLE TABLETS PO SCH (10:00)
[2019-03-15 10:31] LABS: ANISOCYTOSIS 0; MACROCYTOSIS 0; PLATELET ESTIMATE DECREASED
--- NOTE | 2019-03-15 12:29 | PN ---
Physical Exam: SUBJECTIVE: Patient seen and examined OBJECTIVE: Vital Signs Period Temp Pulse Resp BP Sys/Locke Pulse Ox Last 24 Hr 97.0 F-99.4 F 71-90 16-20 140-175/67-90 97-100 GENERAL: The patient is awake, alert, and fully oriented, in no acute distress. HEAD: Normal with no signs of trauma. EYES: PERRL, extraocular movements intact, sclera anicteric, conjunctiva clear. No ptosis. ENT: Ears normal, nares patent, oropharynx clear without exudates, moist mucous membranes. NECK: Trachea midline, full range of motion, supple. LUNGS: Breath sounds equal, clear to auscultation bilaterally, no wheezes, no crackles, no accessory muscle use. HEART: Regular rate and rhythm, S1, S2 without murmur, rub or gallop. ABDOMEN: Soft, nontender, nondistended, normoactive bowel sounds, no guarding, no rebound, no hepatosplenomegaly, no masses. EXTREMITIES: 2+ pulses, warm, well-perfused, no edema. NEUROLOGICAL: Cranial nerves II through XII grossly intact. Normal speech, gait not observed. PSYCH: Normal mood, normal affect. SKIN: Warm, dry, normal turgor, no rashes or lesions noted Laboratory Results - last 24 hr 03/14/19 03/14/19 03/14/19 12:55 13:05 13:05 WBC RBC Hgb Hct MCV MCH MCHC RDW Plt Count MPV Absolute Neuts (auto) Neutrophils % Neutrophils % (Manual) Band Neutrophils % Lymphocytes % Lymphocytes % (Manual) Monocytes % Monocytes % (Manual) Eosinophils % Eosinophils % (Manual) Basophils % Basophils % (Manual) Myelocytes % (Man) Promyelocytes % (Man) Blast Cells % (Manual) Nucleated RBC % Metamyelocytes Hypochromia Platelet Estimate Polychromasia Poikilocytosis Anisocytosis Microcytosis Macrocytosis PT with INR 12.00 INR 1.02 PTT (Actin FS) 30.2 Sodium Potassium Chloride Carbon Dioxide Anion Gap BUN Creatinine Est GFR (CKD-EPI)AfAm Est GFR (CKD-EPI)NonAf POC Glucometer 101 Random Glucose Hemoglobin A1c % Calcium Phosphorus 3.2 Magnesium 2.1 Total Bilirubin AST ALT Alkaline Phosphatase Creatine Kinase 68 Troponin I < 0.02 Total Protein Albumin Triglycerides Cholesterol Total LDL Cholesterol HDL Cholesterol Vitamin B12 TSH 0.95 Urine Color Urine Appearance Urine pH Ur Specific [place] Urine Protein Urine Glucose (UA) Urine Ketones Urine Blood Urine Nitrite Urine Bilirubin Urine Urobilinogen Ur Leukocyte Esterase Urine WBC (Auto) Urine RBC (Auto) Urine Casts (Auto) U Epithel Cells (Auto) Urine Bacteria (Auto) Blood Type Antibody Screen 03/14/19 03/14/19 03/14/19 13:05 13:05 13:05 WBC 14.9 H RBC 4.64 Hgb 13.4 Hct 41.4 MCV 89.3 MCH 28.9 MCHC 32.3 RDW 14.3 Plt Count 144 MPV 7.8 Absolute Neuts (auto) 5.2 Neutrophils % 34.8 L Neutrophils % (Manual) Band Neutrophils % Lymphocytes % 58.3 H Lymphocytes % (Manual) Monocytes % 5.2 Monocytes % (Manual) Eosinophils % 1.5 D Eosinophils % (Manual) Basophils % 0.2 Basophils % (Manual) Myelocytes % (Man) Promyelocytes % (Man) Blast Cells % (Manual) Nucleated RBC % 0 Metamyelocytes Hypochromia Platelet Estimate Polychromasia Poikilocytosis Anisocytosis Microcytosis Macrocytosis PT with INR INR PTT (Actin FS) Sodium 139 Potassium 3.7 Chloride 106 Carbon Dioxide 24 Anion Gap 9 BUN 16.1 Creatinine 0.7 Est GFR (CKD-EPI)AfAm 106.12 Est GFR (CKD-EPI)NonAf 91.56 POC Glucometer Random Glucose 97 Hemoglobin A1c % Calcium 8.6 Phosphorus Magnesium Total Bilirubin 0.5 AST 17 ALT 33 Alkaline Phosphatase 147 H Creatine Kinase Troponin I Total Protein 7.6 Albumin 4.1 Triglycerides 246 H Cholesterol 155 Total LDL Cholesterol 86 HDL Cholesterol 46 Vitamin B12 TSH Urine Color Urine Appearance Urine pH Ur Specific [place] Urine Protein Urine Glucose (UA) Urine Ketones Urine Blood Urine Nitrite Urine Bilirubin Urine Urobilinogen Ur Leukocyte Esterase Urine WBC (Auto) Urine RBC (Auto) Urine Casts (Auto) U Epithel Cells (Auto) Urine Bacteria (Auto) Blood Type A POSITIVE Antibody Screen Negative 03/14/19 03/14/19 03/15/19 14:30 19:40 06:02 WBC 13.0 H RBC 4.45 Hgb 13.0 Hct 38.8 MCV 87.3 MCH 29.3 MCHC 33.6 RDW 14.7 Plt Count 135 MPV 7.4 L Absolute Neuts (auto) 4.3 Neutrophils % 32.9 L Neutrophils % (Manual) 21.6 L Band Neutrophils % 0.0 Lymphocytes % 60.9 H Lymphocytes % (Manual) 34.3 D Monocytes % 5.7 Monocytes % (Manual) 4 Eosinophils % 0.3 Eosinophils % (Manual) 6.9 H D Basophils % 0.2 Basophils % (Manual) 1.0 D Myelocytes % (Man) 0 Promyelocytes % (Man) 0 Blast Cells % (Manual) 0 Nucleated RBC % 0 Metamyelocytes 0 Hypochromia 0 Platelet Estimate Decreased Polychromasia 0 Poikilocytosis 0 Anisocytosis 0 Microcytosis 0 Macrocytosis 0 PT with INR INR PTT (Actin FS) Sodium Potassium Chloride Carbon Dioxide Anion Gap BUN Creatinine Est GFR (CKD-EPI)AfAm Est GFR (CKD-EPI)NonAf POC Glucometer Random Glucose Hemoglobin A1c % Calcium Phosphorus Magnesium Total Bilirubin AST ALT Alkaline Phosphatase Creatine Kinase Troponin I Total Protein Albumin Triglycerides Cholesterol Total LDL Cholesterol HDL Cholesterol Vitamin B12 TSH Urine Color Yellow Urine Appearance Clear Urine pH 7.0 D Ur Specific [place] 1.007 L Urine Protein Negative Urine Glucose (UA) Negative Urine Ketones Negative Urine Blood Negative Urine Nitrite Negative Urine Bilirubin Negative Urine Urobilinogen 0.2 Ur Leukocyte Esterase 1+ H Urine WBC (Auto) 6 Urine RBC (Auto) 0 Urine Casts (Auto) 0 U Epithel Cells (Auto) 1.9 Urine Bacteria (Auto) 20.6 Blood Type A POSITIVE Antibody Screen 03/15/19 03/15/19 06:02 06:02 WBC RBC Hgb Hct MCV MCH MCHC RDW Plt Count MPV Absolute Neuts (auto) Neutrophils % Neutrophils % (Manual) Band Neutrophils % Lymphocytes % Lymphocytes % (Manual) Monocytes % Monocytes % (Manual) Eosinophils % Eosinophils % (Manual) Basophils % Basophils % (Manual) Myelocytes % (Man) Promyelocytes % (Man) Blast Cells % (Manual) Nucleated RBC % Metamyelocytes Hypochromia Platelet Estimate Polychromasia Poikilocytosis Anisocytosis Microcytosis Macrocytosis PT with INR INR PTT (Actin FS) Sodium 141 Potassium 3.7 Chloride 112 H Carbon Dioxide 21 Anion Gap 8 BUN 9.4 Creatinine 0.6 Est GFR (CKD-EPI)AfAm 111.64 Est GFR (CKD-EPI)NonAf 96.33 POC Glucometer Random Glucose 105 Hemoglobin A1c % 5.5 Calcium 8.8 Phosphorus 3.3 Magnesium 2.2 Total Bilirubin 1.0 AST 15 ALT 24 Alkaline Phosphatase 124 H Creatine Kinase Troponin I Total Protein 7.0 Albumin 3.7 Triglycerides Cholesterol Total LDL Cholesterol HDL Cholesterol Vitamin B12 442 TSH Urine Color Urine Appearance Urine pH Ur Specific [place] Urine Protein Urine Glucose (UA) Urine Ketones Urine Blood Urine Nitrite Urine Bilirubin Urine Urobilinogen Ur Leukocyte Esterase Urine WBC (Auto) Urine RBC (Auto) Urine Casts (Auto) U Epithel Cells (Auto) Urine Bacteria (Auto) Blood Type Antibody Screen Active Medications Generic Name Dose Route Start Last Admin Trade Name Freq PRN Reason Stop Dose Admin Aspirin 81 mg 03/15/19 10:00 03/15/19 09:42 Asa - PO 81 mg DAILY JOSEPH Administration Atorvastatin Calcium 40 mg 03/14/19 22:00 03/14/19 21:58 Lipitor - PO 40 mg HS JOSEPH Administration Enoxaparin Sodium 40 mg 03/15/19 10:00 03/15/19 09:43 Lovenox - SQ 40 mg DAILY JOSEPH Administration Escitalopram Oxalate 5 mg 03/15/19 10:00 03/15/19 09:42 Lexapro - PO 5 mg DAILY JOSEPH Administration Losartan Potassium 50 mg 03/15/19 10:00 03/15/19 09:41 Cozaar - PO 50 mg DAILY JOSEPH Administration Metoprolol Succinate 50 mg 03/15/19 10:00 03/15/19 09:42 Toprol Xl - PO 50 mg DAILY JOSEPH Administration ASSESSMENT/PLAN:
[2019-03-15 14:44] VITALS: BP 147/79; PULSE 79; TEMP 98.4
--- NOTE | 2019-03-15 18:05 | DS ---
Physical Exam: SUBJECTIVE: Patient seen and examined. Confusion has resolved. She does not remember the episode yesterday. She has no complaints now and would like to go home. OBJECTIVE: Vital Signs Period Temp Pulse Resp BP Sys/Locke Pulse Ox Last 24 Hr 98.0 F-99.4 F 78-90 16-18 140-175/73-90 97-98 PHYSICAL EXAM GENERAL: The patient is awake, alert, and fully oriented, anxious. LUNGS: Breath sounds equal, clear to auscultation bilaterally, no wheezes, no crackles, no accessory muscle use. HEART: Regular rate and rhythm, S1, S2 without murmur, rub or gallop. ABDOMEN: Soft, nontender, nondistended, normoactive bowel sounds, no guarding, no rebound, no hepatosplenomegaly, no masses. EXTREMITIES: 2+ pulses, warm, well-perfused, no edema. NEUROLOGICAL: Cranial nerves II through XII grossly intact. Normal speech, gait not observed. LABS Laboratory Results - last 24 hr 03/14/19 03/15/19 03/15/19 19:40 06:02 06:02 WBC 13.0 H RBC 4.45 Hgb 13.0 Hct 38.8 MCV 87.3 MCH 29.3 MCHC 33.6 RDW 14.7 Plt Count 135 MPV 7.4 L Absolute Neuts (auto) 4.3 Neutrophils % 32.9 L Neutrophils % (Manual) 21.6 L Band Neutrophils % 0.0 Lymphocytes % 60.9 H Lymphocytes % (Manual) 34.3 D Monocytes % 5.7 Monocytes % (Manual) 4 Eosinophils % 0.3 Eosinophils % (Manual) 6.9 H D Basophils % 0.2 Basophils % (Manual) 1.0 D Myelocytes % (Man) 0 Promyelocytes % (Man) 0 Blast Cells % (Manual) 0 Nucleated RBC % 0 Metamyelocytes 0 Hypochromia 0 Platelet Estimate Decreased Polychromasia 0 Poikilocytosis 0 Anisocytosis 0 Microcytosis 0 Macrocytosis 0 Sodium 141 Potassium 3.7 Chloride 112 H Carbon Dioxide 21 Anion Gap 8 BUN 9.4 Creatinine 0.6 Est GFR (CKD-EPI)AfAm 111.64 Est GFR (CKD-EPI)NonAf 96.33 Random Glucose 105 Hemoglobin A1c % Calcium 8.8 Phosphorus 3.3 Magnesium 2.2 Total Bilirubin 1.0 AST 15 ALT 24 Alkaline Phosphatase 124 H Total Protein 7.0 Albumin 3.7 Vitamin B12 442 Blood Type A POSITIVE 03/15/19 06:02 WBC RBC Hgb Hct MCV MCH MCHC RDW Plt Count MPV Absolute Neuts (auto) Neutrophils % Neutrophils % (Manual) Band Neutrophils % Lymphocytes % Lymphocytes % (Manual) Monocytes % Monocytes % (Manual) Eosinophils % Eosinophils % (Manual) Basophils % Basophils % (Manual) Myelocytes % (Man) Promyelocytes % (Man) Blast Cells % (Manual) Nucleated RBC % Metamyelocytes Hypochromia Platelet Estimate Polychromasia Poikilocytosis Anisocytosis Microcytosis Macrocytosis Sodium Potassium Chloride Carbon Dioxide Anion Gap BUN Creatinine Est GFR (CKD-EPI)AfAm Est GFR (CKD-EPI)NonAf Random Glucose Hemoglobin A1c % 5.5 Calcium Phosphorus Magnesium Total Bilirubin AST ALT Alkaline Phosphatase Total Protein Albumin Vitamin B12 Blood Type HOSPITAL COURSE: Date of Admission:03/14/19 Date of Discharge: 03/15/19 Minutes to complete discharge: 30 Discharge Summary Problems reviewed: Yes Reason For Visit: APHASIA, AMS Current Active Problems Transient global amnesia (Acute) Anxiety (Chronic) Hyperlipidemia (Chronic) Hypertension (Chronic) Altered mental status (Acute) Aphasia (Acute) Plan of Treatment: This is a 63 year old woman with a history of HTN, hyperlipidemia, anxiety, orthostatic hypotension, smoking, amnesia who came to the ED on 03/14 because of confusion. While at work, she was noted to be confused. She could not log into her computer and she wasn't making sense. Her daughter said that she seemed ok as of 11:20 am on the day of admission. However, co-workers reported that she seemed to be having difficulties at work for the last 2 days. She could not remember what happened on the day of admission and she did not know how she got to the ED. She was oriented only to person. Labs were unremarkable except for WBC 14.9 Urinalysis was negative. Head CT was unremarkable. She was admitted to telemetry for altered mental status. She was seen by Dr. Preston and it was thought that the episode might be transient global amnesia, TIA/CVA, or metabolic encephalopathy. There was no obvious infection. Brain MRI/MRA was done and showed no acute infarct, no large vessel stenosis or occlusion. TSH, B12, HbA1c were all normal. Her confusion resolved yet she couldn't remember most of what had occurred. She is being discharged home on March 15. She is advised to follow up with her PCP, Dr. Ron, and with Dr. Lerma next week. Condition: Improved - Instructions Diet, Activity, Other Instructions: You were evaluated in the [facility] ER on March 14 after you were noted to be confused at work. Labs showed a high white blood cell count. CT of the brain was unremarkable. You were seen by a neurologist, Dr. Lerma, who recommended that you have an MRI of the brain. Your confusion improved. MRI and MRA of the brain were unremarkable. This episode was thought to be transient global amnesia. You are being discharged home on March 15. Please resume taking your medications as before admission. Please call Dr. Ron's and Dr. Lerma's office to schedule appointments next week. Referrals: Christian Ron MD [Primary Care Provider] - 1 Week Mahesh Lerma MD [Staff Physician] - 1 Week Disposition: HOME - Home Medications Comprehensive Discharge Medication List: Ambulatory Orders Metoprolol Succinate [Toprol XL -] 50 mg PO DAILY 07/17/11 Losartan Potassium [Cozaar -] 50 mg PO DAILY 09/02/14 Escitalopram Oxalate [Lexapro -] 5 mg PO DAILY 09/23/15 Atorvastatin Calcium [Lipitor] 40 mg PO DAILY 11/15/18 Cholecalciferol (Vitamin D3) [Vitamin D3] 2,000 unit PO DAILY 11/15/18 Gabapentin 300 mg PO TID 11/15/18 traZODone HCL [Trazodone HCl] 100 mg PO HS 11/15/18 Aspirin [ASA -] 81 mg PO DAILY tab.chew 03/15/19 This patient is new to me today: No Emergency Visit: Yes ED Registration Date: 03/14/19 Care time: The patient presented to the Emergency Department on the above date and was hospitalized for further evaluation of their emergent condition. Critical Care patient: No - Discharge Referral Referred to [facility] Med P.C.: No
== END 2019-03-15 18:41 | disposition home or self-care (01) | DRG 70 ==
LOC: JER 12:52 → JERBED 14:20 → J4S 16:47
PROVIDERS: ADMIT Internal Medicine; ATTEND Internal Medicine
DX: G45.4 Transient global amnesia (principal); G93.41 Metabolic encephalopathy; R47.01 Aphasia; E78.5 Hyperlipidemia, unspecified; I10 Essential (primary) hypertension; F41.9 Anxiety disorder, unspecified; D72.829 Elevated white blood cell count, unspecified; G47.00 Insomnia, unspecified; R41.82 Altered mental status, unspecified; R29.703 NIHSS score 3
CPT/HCPCS: 36415; 70450-TC; 70544-TC; 70551-TC; 80053; 81003; 82465; 82550; 82607; 82962; 83036; 83718; 83721; 83735; 84100; 84443; 84478; 84484; 85025; 85610; 85730; 86850; 86900; 86901; 93005; 93010; 93880-TC; 99285-25; J7030

== ENCOUNTER 2021-10-28 13:11 | Emergency (ER) | payer OTHER ==
[2021-10-28 13:17] VITALS: TEMP 98.2; BMI 28.0
[2021-10-28 15:01] LABS: HEMATOCRIT 38.6 % (32.4-45.2); HEMOGLOBIN 12.7 GM/dL (10.7-15.3); MCH 31.2 pg (25.7-33.7); MCHC 32.8 g/dl (32.0-36.0); MEAN CELL VOLUME 95.2 fl (80-96); MEAN PLT VOLUME 7.5 fl (7.5-11.1); PLATELET COUNT 212 10^3/uL (134-434); RBC 4.06 M/mm3 (3.60-5.2); RDW 18.4 % (11.6-15.6); WHITE BLOOD COUNT 21.6 K/mm3 (4.0-10.0)
[2021-10-28 15:10] LABS: INR 1.29 (0.83-1.09); PROTHROMBIN TIME (PATIENT) 14.9 SEC (9.7-13.0)
[2021-10-28 15:12] LABS: ACTIVATED PTT 24.2 SECONDS (25.2-36.5)
[2021-10-28 15:21] LABS: CHLORIDE 113 mmol/L (98-107); SODIUM 144 mmol/L (136-145)
[2021-10-28 15:23] LABS: ALBUMIN 2.6 g/dl (3.4-5.0); ANION GAP 9 MMOL/L (8-16); CALCIUM 8.9 mg/dL (8.5-10.1); CO2 22 mmol/L (21-32); GLUCOSE,RANDOM 123 mg/dL (74-106)
[2021-10-28 15:24] LABS: ANISOCYTOSIS 0; BLOOD UREA NITROGEN 33.2 mg/dL (7-18); HELMET CELLS 0; HOWELL-JOLLY BODIES 0; MACROCYTOSIS 0; OVALOCYTE 0; ROULEAU 0; SICKELED CELLS 0; TARGET CELLS 0; TEAR DROP CELLS 0; TOXIC GRANULATION 0
[2021-10-28 15:26] LABS: SGPT/ALT 49 U/L (13-61)
[2021-10-28 15:27] LABS: CREATININE 0.9 mg/dL (0.55-1.3); SGOT/AST 27 U/L (15-37)
[2021-10-28 15:28] LABS: BILIRUBIN,TOTAL 0.6 mg/dL (0.2-1); TOT PROT 6.4 g/dl (6.4-8.2)
[2021-10-28 15:29] LABS: ALK PHOS 97 U/L (45-117)
[2021-10-28 15:31] LABS: N-TERMINAL BNP 3422.2 pg/ml (5-125)
[2021-10-28] MEDS ORDERED: ASPIRIN 81 MG CHEWABLE TABLETS PO ONE (15:51)
[2021-10-28] MEDS ORDERED: ASPIRIN 81 MG CHEWABLE TABLETS ONE (15:53)
[2021-10-28] MEDS ORDERED: morphine CARPU-JECT 4 MG/1 ML DISP.SYRIN IVPUSH ONE (16:34)
[2021-10-28] MEDS ORDERED: morphine SULFATE 4 MG/ML VIAL ONE (16:37)
[2021-10-28] MEDS ORDERED: HEPARIN NA (PORCINE) 5,000 UNITS/ML 1ML VIAL IVPUSH ONE (17:38)
[2021-10-28] MEDS ORDERED: HEPARIN NA (PORCINE) 5,000 UNITS/ML 1ML VIAL IVPUSH PRN ×2 (17:38)
[2021-10-28] MEDS ORDERED: HEPARIN INFUSION - 25,000 UNITS/500 ML INFUS.BAG IVPB SCH (17:45)
[2021-10-28] MEDS ORDERED: HEPARIN NA (PORCINE) 5,000 UNITS/ML 1ML VIAL ONE (18:07)
[2021-10-28] MEDS ORDERED: HEPARIN INFUSION - 25,000 UNITS/500 ML INFUS.BAG IVPB ONE (18:07)
[2021-10-28 19:26] VITALS: BP 171/100; PULSE 115; RESP 24
== END 2021-10-28 18:56 | disposition short-term general hospital (02) ==
LOC: JER 13:11
DX: R53.1 Weakness (principal); R79.1 Abnormal coagulation profile; R09.02 Hypoxemia; I50.9 Heart failure, unspecified; D72.829 Elevated white blood cell count, unspecified; I26.94 Multiple subsegmental thrombotic pulmonary emboli without acute cor pulmonale
CPT/HCPCS: 36415; 71045-TC-FY; 71275-TC; 80053; 83880; 84484; 85025; 85379; 85610; 85730; 93005; 93010; 99291; C9803-CS; J1644; U0003; U0005